=== PATIENT | female | born 1960 | race African-American/Black ===

== ENCOUNTER 2017-05-30 11:09 | Inpatient (IN) | payer MEDICARE, MEDICAID ==
[2017-05-30] VITALS (7 sets, daily range): BP systolic 123–149; BP diastolic 73–90
[~2017-05-30] VITALS: Ht 165.1 cm; Wt 54.4 kg
--- NOTE | 2017-05-30 11:13 | Emergency Room Report ---
History of Present Illness General Chief Complaint: Altered Level of Consciousness Present Illness HPI PMHx: hypothyroid, spinocerebellar disease, depression, insomna, anemia, stage 4 ulcers Non-verbal DNR WBC 17K as of 05/28 Hb 5.6/19 Allergies: Coded Allergies: No Known Allergies (Unverified , 05/30/17) Patient History Past Medical History: other - see hpi Past Surgical History: unable to obtain Pertinent Family History: unable to obtain Social History: Denies: smoking, alcohol use, drug use Now: No Immunizations: UTD Reviewed Nursing Documentation: PMH: Agreed, PSxH: Agreed Nursing Documentation-PMH Hx Cardiac Problems: Yes - cad Hx Hypertension: Yes Hx Diabetes: Yes History Of Psychiatric Problem: Yes - depression, hypothyroid Review of Systems All Other Systems: limited - AMS Physical Exam Vital Signs Date Time Temp Pulse Resp B/P (MAP) Pulse Ox O2 Delivery O2 Flow Rate FiO2 05/30/17 10:59 98 24 120/7 98 Simple Mask 10.0 Sp02 EP Interpretation: reviewed, normal General Appearance: normal inspection, well appearing, no apparent distress, alert, cachetic, other - Diaphoretic, grunting Head: normocephalic, atraumatic Eyes: bilateral eye PERRL, bilateral eye EOMI ENT: normal ENT inspection, hearing grossly normal Neck: normal inspection, thyroid normal, no meningismus Respiratory: normal inspection, lungs clear, normal breath sounds, no rhonchi, no respiratory distress, no retraction, no accessory muscle use, no wheezing Cardiovascular #1: normal peripheral pulses, regular rate, rhythm, no edema, no gallop, tachycardia Gastrointestinal: normal inspection, non tender, soft, no mass, other - Gtube in place. No infection at site Genitourinary: no CVA tenderness Musculoskeletal: normal inspection, back normal, normal range of motion, Kofi' s Sign negative, other - Sacral decubitus ulcer Neurologic: normal inspection, alert, responsive, speech normal Medical Decision Making Diagnostic Impression: Primary Impression: Altered level of consciousness Additional Impressions: Sepsis Qualified Codes: A41.9 - Sepsis, unspecified organism Tachycardia ER Course [facility] Low-grade fever, tachycardia. Normotensive ?if given daily metoprolol at [facility] - was given Lopressor here [place] 16K. Empiric Tx for sepsis given Unknown source. CXR doesnt show PNA. UA: No UTI Possible infected stage 4 ulcer? Initial tachycardia 160 improved to 120 after IVF, HI tylenol, Abx, metoprolol Endorsed for tele admit at 1230pm to Dr Barnett for panel admit. EKG Diagnostic Results Rate: tachycardiac Rhythm: NSR ST Segments: no acute changes ASA given to the pt in ED: No Rhythm Strip Diag. Results EP Interpretation: yes Rate: 148 Rhythm: NSR, no PVC's, no ectopy Chest X-Ray Diagnostic Results Chest X-Ray Diagnostic Results : Chest X-Ray Ordered: Yes # of Views/Limited/Complete: 1 View Indication: Other - AMS EP Interpretation: Yes Interpretation: no consolidation, no effusion, no pneumothorax, no acute cardiopulmonary disease Impression: No acute disease Interpreting ER Provider: Dr Ekta Monterroso MD Last Vital Signs Date Time Temp Pulse Resp B/P (MAP) Pulse Ox O2 Delivery O2 Flow Rate FiO2 05/30/17 10:59 98 24 120/7 98 Simple Mask 10.0 Status: improved Disposition: ADMITTED INPATIENT Condition: Serious EKTA MONTERROSO M.D. May 30, 2017 11:13
[2017-05-30] MEDS ORDERED: Metoprolol 5mg/5ml Inj IVP SCH (11:15)
[2017-05-30] MEDS ORDERED: MULTIVITAMINS1 EAC2 ORAL (11:33)
[2017-05-30] MEDS ORDERED: OMEPRAZOLE20 M2 GT (11:33)
[2017-05-30] MEDS ORDERED: NORCO 5-325 TA1 EACH (11:33)
[2017-05-30] MEDS ORDERED: DOCUSATE SODIU250 MG ORAL (11:33)
[2017-05-30] MEDS ORDERED: KLONOPIN0.5 MG GT (11:33)
[2017-05-30] MEDS ORDERED: LEXAPRO10 MG GT (11:33)
[2017-05-30] MEDS ORDERED: METOPROLOL TART25 MG GT (11:33)
[2017-05-30] MEDS ORDERED: LEVOTHYROXINE88 MCG GT (11:33)
[2017-05-30] MEDS ORDERED: ASCORBIC ACID500 MG ORAL (11:33)
[2017-05-30] MEDS ORDERED: MIRTAZAPINE15 MG ORAL (11:33)
[2017-05-30 11:34] LABS: APPEARANCE,URINE SLIGHTLY CLOUDY; KETONES,URINE NEGATIVE (NEGATIVE); LEUKOCYTE ESTERASE ,URINE 1+ (NEGATIVE); MEAN CORPUSCULAR HEMOGLOBIN 26.8 PG (27.0-31.0); MEAN CORPUSCULAR HGB CONC 31.2 G/DL (32.0-36.0); MEAN CORPUSCULAR VOLUME 86 FL (80-99); MEAN PLATELET VOLUME 5.7 FL (6.5-10.1); NITRITE,URINE NEGATIVE (NEGATIVE); PH,URINE 5 (4.5-8.0); PLATELET COUNT 831 K/UL (150-450); PROTEIN,URINE 2+ (NEGATIVE); RED BLOOD COUNT 3.83 M/UL (4.20-5.40); RED CELL DISTRIBUTION WIDTH 15.6 % (11.6-14.8); UROBILINOGEN,URINE NORMAL MG/DL (0.0-1.0); WHITE BLOOD COUNT 16.6 K/UL (4.8-10.8)
[2017-05-30] MEDS ORDERED: Cefepime HCl 2 GM in D5W 110 ML IVPB ONE (11:45)
[2017-05-30] MEDS ORDERED: Acetaminophen 650 MG SUPP RECTAL ONE (11:45)
[2017-05-30 11:46] LABS: INR 0.9 (0.9-1.1); PROTHROMBIN TIME 9.6 SEC (9.30-11.50)
[2017-05-30 11:50] LABS: BACTERIA,URINE FEW /HPF; RBC,URINE 0-2 /HPF (0 - 2); SQUAMOUS EPITHELIAL CELL,UR FEW /LPF (NONE/OCC)
[2017-05-30 11:51] LABS: URIC ACID CRYSTALS,URINE MODERATE /LPF; YEAST,URINE OCCASIONAL /HPF
[2017-05-30 11:57] LABS: TROPONIN I < 0.30 ng/mL (<=0.30)
[2017-05-30 11:58] LABS: ALANINE AMINOTRANSFERASE 23 U/L (3-33); ALBUMIN/GLOBULIN RATIO 0.5 (1.0-2.7); ANION GAP 14 (5-15); ASPARTATE AMINO TRANSFERASE 25 U/L (5-40); CALCIUM 8.8 mg/dL (8.6-10.2); CARBON DIOXIDE 27 mEQ/L (20-30); CHLORIDE 98 mEQ/L (98-107); CREATININE 0.4 mg/dL (0.5-0.9); GLOMERULAR FILTRATION RATE > 60 mL/min (>60); HEMOLYSIS 23; POTASSIUM 4.3 mEQ/L (3.4-4.9); SODIUM 139 mEQ/L (135-145); TOTAL PROTEIN 6.9 g/dL (6.6-8.7)
[2017-05-30] MEDS ORDERED: Cefepime 2gm ONE (11:59)
--- NOTE | 2017-05-30 12:00 | Diagnostic Imaging Report ---
Indication: Dyspnea Comparison: None A single view chest radiograph was obtained. Findings: Lungs are clear. Heart size is normal. There is a multi-endhole drainage catheter projected over the left upper quadrant of abdomen. There is an apparent fracture that is markedly displaced involving the left mid humerus. This is not well evaluated on the current study. Please correlate clinically. Impression: No acute cardiopulmonary disease. Apparent fracture of the left mid humerus. Please correlate clinically and obtain further imaging as warranted.
[2017-05-30 12:03] LABS: REFLEX LACTIC ACID YES OR NO YES
[2017-05-30 12:08] LABS: CKMB 3.8 ng/mL (< 3.8)
[2017-05-30 12:22] LABS: ANISOCYTOSIS 1+; BAND NEUTROPHILS % (MANUAL) 4 % (0-8); BASOPHILS % (MANUAL) 0 % (0-2); EOSINOPHILS % (MANUAL) 0 % (0-3); HYPOCHROMASIA 1+; LYMPHOCYTES % (MANUAL) 9 % (20-45); NEUTROPHILS % (MANUAL) 86 % (45-75); PLATELET ESTIMATE INCREASED; TOTAL CELLS COUNTED 100
[2017-05-30 12:32] LABS: PLATELET MORPHOLOGY NORMAL
[2017-05-30] MEDS ORDERED: Morphine Sulfate 4mg/ml Inj IVP PRN (14:30)
[2017-05-30] MEDS ORDERED: Milk of Magnesia 30ml Ud ORAL PRN (14:30)
--- NOTE | 2017-05-30 14:32 | History & Physical ---
History and Physical History & Physicial HP dictated # [id number] CHARLES JOSE May 30, 2017 14:32
[2017-05-30] MEDS ORDERED: Metoprolol 5mg/5ml Inj IVP STA (15:33)
[2017-05-30] MEDS ORDERED: Vancomycin 1250mg/D5W 250ml IVPB ONE (17:00)
[2017-05-30] MEDS: Aspirin EC 325mg tab ORAL SCH (18:14)
[2017-05-30] MEDS: Heparin 5000 units/ml inj SUBQ SCH ×2 (18:20→22:23)
[2017-05-30] MEDS ORDERED: Piperacillin/Tazobactam 3.375 GM in NS 110 ML IVPB SCH (20:00)
[2017-05-30] MEDS: Piperacillin/Tazobactam 3.375 GM in NS 110 ML IVPB SCH (23:06)
[2017-05-31] VITALS: BP 104/81
[2017-05-31] MEDS ORDERED: VANCOMYCIN1 GM/2502 IVPB (01:56)
[2017-05-31] MEDS ORDERED: ACETAMINOPHEN325 M1 GT (01:56)
[2017-05-31] MEDS ORDERED: SORBITOL 70%30 ML GT (01:56)
[2017-05-31] MEDS ORDERED: ZOSYN 3.373.375 GM/1 IVPB (01:56)
[2017-05-31] MEDS ORDERED: SENNA8.6 M2 GT (01:56)
[2017-05-31 04:00] VITALS: BP 131/82
[2017-05-31] MEDS ORDERED: Vancomycin 750mg/D5W 275ml IVPB SCH ×2 (05:00)
[2017-05-31] MEDS: Piperacillin/Tazobactam 3.375 GM in NS 110 ML IVPB SCH ×3 (06:10→21:42)
[2017-05-31 08:28] VITALS: BP 123/70
--- NOTE | 2017-05-31 08:45 | History and Physical Report ---
DATE OF ADMISSION: 05/30/2017 CHIEF COMPLAINT: The [facility] in [facility] for change of mental status. 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 She is nonverbal and is unable to provide any history. She was sent to the emergency room for change in mental status and was diagnosed with sepsis with high white count of 16,600. The patient is being admitted for treatment. PAST MEDICAL HISTORY: The patient has a history of stage IV sacral decubitus and multiple decubitus in the back, history of anemia, depression, and hypothyroidism. She is status post G-tube placement and tube feedings, reported history of diabetes and hypertension. MEDICATIONS: Reviewed in the EMR. SOCIAL HISTORY: Unobtainable. The patient lives in a prison as mentioned. ALLERGIES: No known drug allergies. REVIEW OF SYSTEMS: Unobtainable. PHYSICAL EXAMINATION: GENERAL: The patient is a 56-year-old female, in no acute distress. Eyes opened, nonverbal. VITAL SIGNS: Blood pressure is 149/88, pulse 147, temperature 100 degrees, and respirations 35. HEENT: Somewhat pale conjunctivae. Anicteric sclerae. NECK: Supple. LUNGS: Clear to auscultation. HEART: S1 and S2 without murmurs or rubs. ABDOMEN: Soft and nontender. The patient has a G-tube in upper abdomen. EXTREMITIES: No cyanosis or edema. The patient has contractures of lower extremities. LABORATORY FINDINGS: CBC shows a WBC of 16.6, hematocrit 32.8, hemoglobin is 10.2, and platelets . Chemistry panel shows serum sodium 139, potassium 4.3, chloride 98, CO2 27, BUN 24, creatinine 0.4, and blood sugar is 148. UA shows 2 to 4 WBCs per high-power field. ASSESSMENT: This is a 56-year-old female, who was admitted with change in mental status. She has been diagnosed with sepsis with high white count and also fevers. UA findings looks benign, although, the patient has a indwelling Chahal catheter, doubt urinary tract infection, very likely the patient has osteomyelitis as a result of sacral decubitus. The patient apparently was supposed to be on vancomycin before. PLAN: The patient will be on IV antibiotics, tube feeding, pain medication, and wound care will be done. I will ask plastic surgeon, Dr. Townsend to see the patient. Labs would be followed and adjustments will be made in the patient's regimen. Kody Aguirre M.D. DR: ANTONIO JOB#: [id number] CC:
[2017-05-31] MEDS: Aspirin EC 325mg tab ORAL SCH (08:55)
[2017-05-31] MEDS: Heparin 5000 units/ml inj SUBQ SCH ×2 (08:57→20:11)
[2017-05-31 12:13] VITALS: BP 106/64
--- NOTE | 2017-05-31 15:20 | General Progress Note ---
Assessment/Plan Problem List: (1) Sepsis ICD Codes: A41.9 - Sepsis, unspecified organism SNOMED: 64541041 Qualifiers: Qualified Codes: A41.9 - Sepsis, unspecified organism (2) Altered level of consciousness ICD Codes: R40.4 - Transient alteration of awareness SNOMED: 8335913 (3) Gram-neg septicemia ICD Codes: A41.50 - Gram-negative sepsis, unspecified SNOMED: 721683649 (4) Sacral decubitus ulcer, stage IV ICD Codes: L89.154 - Pressure ulcer of sacral region, stage 4 SNOMED: 319262246, 000095575 Assessment/Plan abxs wound care Discussed with RN and sister DNR, DNI Subjective Allergies: Coded Allergies: No Known Allergies (Unverified , 05/30/17) Subjective In NAD Objective Last 24 Hour Vital Signs Date Time Temp Pulse Resp B/P (MAP) Pulse Ox O2 Delivery O2 Flow Rate FiO2 05/31/17 12:13 99.0 114 20 106/64 100 Nasal Cannula 3.0 05/31/17 12:00 103 05/31/17 08:28 99.2 125 22 123/70 99 Nasal Cannula 3.0 05/31/17 08:00 122 05/31/17 04:00 129 05/31/17 04:00 99.4 129 20 131/82 100 Nasal Cannula 3.0 05/31/17 00:00 99.3 138 20 104/81 100 Nasal Cannula 3.0 05/31/17 00:00 131 05/30/17 20:00 98.0 140 18 126/74 100 Nasal Cannula 2.0 05/30/17 17:45 130 05/30/17 17:17 98.2 126 20 137/78 99 Room Air 05/30/17 16:47 118 27 134/74 100 Nasal Cannula 2.0 05/30/17 16:06 116 24 133/75 100 Nasal Cannula 2.0 05/30/17 15:39 132 127/72 Intake and Output 05/31/17 06/01/17 19:00 07:00 Intake Total 310 ml Balance 310 ml IV Total 200 ml Tube Feeding 60 ml Other 50 ml Height (Feet): 5 Height (Inches): 5.00 Weight (Pounds): 120 Cardiovascular: normal rate Respiratory/Chest: lungs clear Edema: no edema noted CHARLES Sims 27, 2017 15:20
[2017-05-31 16:34] VITALS: BP 110/73
[2017-05-31] MEDS: Vancomycin 750mg/NS 250ml IVPB SCH (17:14)
[2017-05-31 20:15] VITALS: BP 115/73
[2017-06-01] VITALS: BP 130/66
[2017-06-01] MEDS: clonazePAM 0.5mg tab GT PRN (00:47)
--- NOTE | 2017-06-01 04:00 | Consultation ---
DATE OF CONSULTATION: 05/31/2017 INFECTIOUS DISEASE CONSULTATION PRIMARY ATTENDING PHYSICIAN: Kody Aguirre M.D. REASON FOR CONSULT: Gram-negative sepsis, infected pressure ulcer. HISTORY OF PRESENT ILLNESS: The patient is a 56-year-old female, admitted yesterday from a alf facility because of altered mental status. The patient was nonverbal on her baseline. She had leukocytosis at the time of admission with low-grade fever of 100 and tachycardia of 147. She has extensive pressure ulcer in the back and right hip. PAST MEDICAL HISTORY: Significant for spinocerebellar disease, diabetes mellitus, hypertension, hypothyroidism, anemia, and status post G-tube feeding. ALLERGIES: No known drug allergy. MEDICATIONS: Vancomycin, Zosyn, ranitidine, aspirin, sodium chloride, heparin, Tylenol, morphine, and Ambien. SOCIAL HISTORY: [facility] resident. Code status is DNR. No other history is obtainable. PHYSICAL EXAMINATION: VITAL SIGNS: Temperature 99, pulse 114, and blood pressure is 106/64. GENERAL APPEARANCE: Awake and noncommunicative. opens eyes, does not have any other movement. HEAD AND NECK: [place] conjunctiva. HEART: Tachycardic. LUNGS: Clear. ABDOMEN: Soft. G-tube. EXTREMITIES: She has no edema. Has severe muscle atrophy. GENITOURINARY: She has Chahal catheter. SKIN: She has a stage IV pressure ulcer in the sacrum and right hip area. Wound in the right hip has a very purulent discharge and the bone is also exposed. Both wounds have necrotic tissue and undermining. LABORATORY AND DIAGNOSTIC DATA: WBC 16.6, hemoglobin 10.2, hematocrit 32.8, and platelets 831,000. Sodium 139, potassium 4.2, chloride 98, bicarbonate 27, BUN 24, creatinine 0.4, and glucose 148. Her first lactate level was 2.5 that came to 1.8. Blood cultures grew Gram-negative rods. Urine culture so far negative. Wound culture is pending. Chest x-ray, negative. IMPRESSION: Gram-negative sepsis. The source of infection seems to be infected pressure ulcer and osteomyelitis. The patient has diabetes mellitus, hypertension, hypothyroidism, anemia, and status post chronic tube placement. RECOMMENDATION: We will continue with Zosyn and vancomycin, most likely needs debridement. We will follow up the culture, growth now seems to be poor. At the end of my exam, I thank, Dr. Aguirre, for involving me in the care of this patient. Elroy Aguirre M.D. DR: ANSHU JOB#: [id number] CC: MELISSA
[2017-06-01 04:19] VITALS: BP 132/74
[2017-06-01] MEDS: Vancomycin 750mg/NS 250ml IVPB SCH ×2 (04:44→17:43)
[2017-06-01] MEDS: Piperacillin/Tazobactam 3.375 GM in NS 110 ML IVPB SCH ×3 (05:12→21:09)
[2017-06-01 08:04] VITALS: BP 104/61
--- NOTE | 2017-06-01 08:30 | Infectious Diseases Prog Note ---
Assessment/Plan Assessment/Plan A: Gram negative sepsis Infected pressure ulcer & osteomyelitis of sacrum & hip Left humerus fracture Anemia P; Continue Zosyn & Vancomycin will f/u cultures Subjective ROS Limited/Unobtainable: Yes Allergies: Coded Allergies: No Known Allergies (Unverified , 05/30/17) Objective Vital Signs Last 24 Hour Vital Signs Date Time Temp Pulse Resp B/P (MAP) Pulse Ox O2 Delivery O2 Flow Rate FiO2 06/01/17 08:04 98.0 81 20 104/61 100 Nasal Cannula 5.0 06/01/17 04:19 97.3 93 20 132/74 100 Nasal Cannula 5.0 06/01/17 04:00 84 06/01/17 00:48 99.0 06/01/17 00:00 125 06/01/17 00:00 99.0 127 23 130/66 100 Nasal Cannula 3.0 05/31/17 20:15 98.4 108 19 115/73 100 Nasal Cannula 3.0 05/31/17 20:00 103 05/31/17 16:34 98.6 110 20 110/73 99 Nasal Cannula 3.0 05/31/17 16:00 102 05/31/17 12:13 99.0 114 20 106/64 100 Nasal Cannula 3.0 05/31/17 12:00 103 05/31/17 08:28 99.2 125 22 123/70 99 Nasal Cannula 3.0 Height (Feet): 5 Height (Inches): 5.00 Weight (Pounds): 120 General Appearance: no acute distress HEENT: other - O2 by cannula Respiratory/Chest: lungs clear Cardiovascular: normal rate Abdomen: soft, non tender, other - GT feeding Extremities: no edema, other - deformity of left arm Skin: ulcers Neurologic/Psychiatric: aphasia, other - opens eyes only Microbiology Date/Time Source Procedure Growth Status 05/30/17 11:30 Blood Blood Culture - Preliminary Gram Negative Bacillus 1 Resulted 05/30/17 11:15 Blood Blood Culture - Preliminary Gram Negative Bacillus 1 Resulted 05/30/17 15:12 Nasal Nares MRSA Culture - Final NO METHICILLIN RESISTANT STAPH AUREUS... Complete 05/30/17 11:15 Urine,Clean Catch Urine Culture - Preliminary NO GROWTH AFTER 24 HOURS Resulted 05/30/17 21:00 Sacral Swab Gram Stain - Final Resulted 05/30/17 21:00 Sacral Swab Wound Culture Pending Resulted Current Medications Medications (Trade) Dose Ordered Sig/Danielle Route PRN Reason Start Time Stop Time Status Last Admin Dose Admin Acetaminophen (Tylenol) 650 mg Q4H PRN ORAL Mild Pain (Pain Scale 1-3) 05/30/17 14:30 06/29/17 14:29 05/31/17 23:49 Aspirin (Ecotrin) 325 mg DAILY ORAL 05/30/17 16:15 06/29/17 16:14 05/31/17 08:55 Clonazepam (KlonoPIN) 0.5 mg Q6H PRN GT For Anxiety/shaking 06/01/17 00:45 06/08/17 00:44 06/01/17 00:47 Dextrose (Dextrose 50%) STAT PRN IV Hypoglycemia 05/30/17 14:30 06/29/17 14:29 Escitalopram Oxalate (Lexapro) 10 mg DAILY GT 06/01/17 09:00 07/01/17 08:59 Heparin Sodium (Porcine) (Heparin 5000 units/ml) 5,000 units EVERY 12 HOURS SUBQ 05/30/17 16:00 06/29/17 15:59 05/31/17 20:11 Levothyroxine Sodium (Synthroid) 88 mcg DAILY@0630 GT 06/01/17 06:30 07/01/17 06:29 06/01/17 06:02 Magnesium Hydroxide (Mom) 30 ml HSPRN PRN ORAL Constipation 05/30/17 14:30 06/29/17 14:29 Morphine Sulfate (Morphine Sulfate) 4 mg EVERY 3 HOURS PRN IVP Severe Pain (Pain Scale 7-10) 05/30/17 14:30 06/06/17 14:29 Piperacillin Sod/ Tazobactam Sod 3.375 gm/Sodium Chloride 110 ml @ 220 mls/hr Q8HR IVPB 05/30/17 22:15 06/06/17 22:14 06/01/17 05:12 Ranitidine HCl (Zantac) 150 mg TWICE A DAY ORAL 05/30/17 18:00 06/29/17 17:59 05/31/17 18:06 Sodium Chloride 1,000 ml @ 50 mls/hr Q20H IV 05/30/17 16:00 06/29/17 15:59 05/31/17 21:47 Vancomycin HCl (Vanco rx to dose) 1 ea DAILY PRN MISC Per rx protocol 05/30/17 14:30 06/29/17 14:29 Vancomycin/Sodium Chloride 250 ml @ 166.667 mls/hr Q12HR@0500,1700 IVPB 05/31/17 17:00 06/05/17 16:59 06/01/17 04:44 Zolpidem Tartrate (Ambien) 5 mg DAILYPRN PRN ORAL Insomnia 05/30/17 14:30 06/06/17 14:29 CALEB JOSE Jun 01, 2017 08:30
[2017-06-01] MEDS: Aspirin EC 325mg tab ORAL SCH (08:47)
[2017-06-01] MEDS: Heparin 5000 units/ml inj SUBQ SCH ×2 (08:53→20:19)
--- NOTE | 2017-06-01 09:51 | General Progress Note ---
Assessment/Plan Problem List: (1) Sepsis ICD Codes: A41.9 - Sepsis, unspecified organism SNOMED: 19743224 Qualifiers: Qualified Codes: A41.9 - Sepsis, unspecified organism (2) Altered level of consciousness ICD Codes: R40.4 - Transient alteration of awareness SNOMED: 0449006 (3) Gram-neg septicemia ICD Codes: A41.50 - Gram-negative sepsis, unspecified SNOMED: 204638292 (4) Sacral decubitus ulcer, stage IV ICD Codes: L89.154 - Pressure ulcer of sacral region, stage 4 SNOMED: 272139191, 581675787 Assessment/Plan abxs wound care follow labs DNR, DNI Subjective Allergies: Coded Allergies: No Known Allergies (Unverified , 05/30/17) Subjective In NAD Objective Last 24 Hour Vital Signs Date Time Temp Pulse Resp B/P (MAP) Pulse Ox O2 Delivery O2 Flow Rate FiO2 06/01/17 08:04 98.0 81 20 104/61 100 Nasal Cannula 5.0 06/01/17 04:19 97.3 93 20 132/74 100 Nasal Cannula 5.0 06/01/17 04:00 84 06/01/17 00:48 99.0 06/01/17 00:00 125 06/01/17 00:00 99.0 127 23 130/66 100 Nasal Cannula 3.0 05/31/17 20:15 98.4 108 19 115/73 100 Nasal Cannula 3.0 05/31/17 20:00 103 05/31/17 16:34 98.6 110 20 110/73 99 Nasal Cannula 3.0 05/31/17 16:00 102 05/31/17 12:13 99.0 114 20 106/64 100 Nasal Cannula 3.0 05/31/17 12:00 103 Height (Feet): 5 Height (Inches): 5.00 Weight (Pounds): 120 Cardiovascular: normal rate Respiratory/Chest: lungs clear Abdomen: soft CHARLES JOSE Jun 01, 2017 09:51
[2017-06-01 12:06] VITALS: BP 103/52
--- NOTE | 2017-06-01 16:15 | Wound Care Consultation ---
Wound Assessment Wound Assessment #1: Wound Number: 1 Wound Present on Admission: Yes New Wound: No Status Change of Wound: No Wound Location Body Site Modif: left, upper, posterior Wound Location Body Site: back Wound Type: pressure ulcer Chava Test: Does not Chava Pressure Ulcer Stage: IV/unstageable Wound Thickness: Full Thickness Wound Length: 2.0 Wound Width: 2.0 Wound Depth: utd Percent of Wound Bed Yellow/Wh: 100 Other Colors Identified: surrounding tissue noted with full thickness scar tissue Wound Drainage Description: Serosanguineous Wound Drainage Amount: Moderate Wound Drainage Odor: None/Absent Tissue Surrounding Wound: Erythemic Wound General Appearance: Reddened, Draining, Necrotic Wound Assessment #2: Wound Number: 2 Wound Present on Admission: Yes New Wound: No Status Change of Wound: No Wound Location Body Site Modif: left, upper, posterior Wound Location Body Site: back Wound Type: scar Chava Test: Does not Chava Wound Thickness: Full Thickness Wound Length: 3.0 Wound Width: 2.0 Percent of Wound Cable/Red: 100 Wound Drainage Amount: None Wound Drainage Odor: None/Absent Tissue Surrounding Wound: Intact Wound General Appearance: Clean/Dry Wound Assessment #3: Wound Present on Admission: Yes New Wound: No Status Change of Wound: No Wound Location Body Site Modif: right, upper, posterior Wound Location Body Site: back Wound Type: pressure ulcer Chava Test: Does not Chava Pressure Ulcer Stage: deep tissue injury Wound Thickness: Full Thickness Wound Length: 3.0 Wound Width: 3.0 Wound Depth: utd Percent of Wound Purple/Maroon: 100 Wound Drainage Amount: None Wound Drainage Odor: None/Absent Tissue Surrounding Wound: Erythemic Wound General Appearance: Reddened - maroon. Wound Assessment #4: Wound Number: 4 Wound Present on Admission: Yes New Wound: No Status Change of Wound: No Wound Location Body Site Modif: right, upper, posterior Wound Location Body Site: back - site #2 Wound Type: pressure ulcer Chava Test: Does not Chava Pressure Ulcer Stage: IV/unstageable Wound Thickness: Full Thickness Wound Length: 4.0 Wound Width: 3.0 Wound Depth: utd Percent of Wound Bed Yellow/Wh: 80 Percent of Wound Black/Brown: 20 Wound Drainage Amount: Moderate Wound Drainage Odor: None/Absent Tissue Surrounding Wound: Erythemic Wound General Appearance: Reddened, Draining, Necrotic Wound Assessment #5: Wound Number: 5 Wound Present on Admission: Yes New Wound: No Status Change of Wound: No Wound Location Body Site: other - sacrococcygeal Wound Type: pressure ulcer Chava Test: Does not Chava Pressure Ulcer Stage: IV/unstageable Wound Thickness: Full Thickness Wound Length: 14.0 Wound Width: 20.0 Wound Depth: 4.0 Percent of Wound Cable/Red: 70 Percent of Wound Bed Yellow/Wh: 30 Wound Drainage Description: Serosanguineous Wound Drainage Amount: Copious Wound Drainage Odor: Mild Odor Tissue Surrounding Wound: Macerated Wound Undermining at 12:00: 3.0 Wound Undermining at 3:00: 3.0 Wound Undermining at 9:00: 5.0 Wound General Appearance: Reddened, Draining, Necrotic, Bone Palpable, Muscle Visible Wound Assessment #6: Wound Number: 6 Wound Present on Admission: Yes New Wound: No Status Change of Wound: No Wound Location Body Site Modif: right Wound Location Body Site: ischial tuberosity Wound Type: pressure ulcer Chava Test: Does not Chava Pressure Ulcer Stage: IV/unstageable Wound Thickness: Full Thickness Wound Length: 14.0 Wound Width: 14.0 Wound Depth: utd Percent of Wound Cable/Red: 70 Percent of Wound Bed Yellow/Wh: 30 Wound Drainage Description: Serosanguineous Wound Drainage Amount: Copious Wound Drainage Odor: Mild Odor Tissue Surrounding Wound: Macerated Wound Undermining at 12:00: 5.0 Wound General Appearance: Reddened, Draining, Necrotic, Bone Palpable, Muscle Visible, Bone Visible Wound Assessment #7: Wound Number: 7 Wound Present on Admission: Yes New Wound: No Status Change of Wound: No Wound Location Body Site Modif: left Wound Location Body Site: ischial tuberosity Wound Type: pressure ulcer Pressure Ulcer Stage: IV/unstageable Wound Thickness: Full Thickness Wound Length: 3.0 Wound Width: 2.0 Wound Depth: utd Percent of Wound Black/Brown: 100 Wound Drainage Description: Serosanguineous Wound Drainage Amount: Moderate Wound Drainage Odor: None/Absent Tissue Surrounding Wound: Macerated Wound General Appearance: Reddened, Draining Wound Assessment #8: Wound Number: 8 Wound Present on Admission: Yes New Wound: No Status Change of Wound: No Wound Location Body Site Modif: left Wound Location Body Site: trochanter Wound Type: pressure ulcer Chava Test: Does not Chava Pressure Ulcer Stage: IV/unstageable Wound Thickness: Full Thickness Wound Length: 5.5 Wound Width: 5.5 Wound Depth: utd Percent of Wound Bed Yellow/Wh: 50 Percent of Wound Purple/Maroon: 50 Wound Drainage Description: Serosanguineous Wound Drainage Amount: Moderate Wound Drainage Odor: None/Absent Tissue Surrounding Wound: Erythemic Wound General Appearance: Reddened, Draining, Necrotic Wound Comment 1. left upper posterior back pressure ulcer stage IV/Unstageable. 2. left upper posterior back full thickness scar tissue. 3. right upper posterior back deep tissue injury. 4. right upper posterior back site #2 pressure ulcer stage IV/Unstageable. 5. sacrococcygeal pressure ulcer stage IV. 6. right ischial tuberosity pressure ulcer stage IV. 7. left ischial tuberosity pressure ulcer unstageable. 8. left trochanter pressure ulcer stage IV/unstageable. recommendation. -follow up with attending MD for possible consult with joey royal or consult with md for possible debridement. -apply low air loss p200 mattress for wound and skin management. -Keep clean and dry. -Optimize nutrition. -Turn and reposition. -local wound care as ordered per protocol. -Heel protectors. -offload affected wound sites. -offload heels and feet. -avoid shear and friction. -Assess and notify MD for any changes of condition noted to skin. ERROL PACHECO Jun 01, 2017 16:15
[2017-06-01 17:30] VITALS: BP 105/57
--- NOTE | 2017-06-01 18:03 | Consultation ---
History of Present Illness General Date patient seen: Jun 01, 2017 Time patient seen: 17:57 Chief Complaint: Altered Level of Consciousness Referring physician: Dr. Barnett Reason for Consultation: Pressure ulcers of the trunk Present Illness HPI Asked to evaluate this 56 yof with multiple pressure ulcers. Patient was admitted to [facility] from a SNF 2 days ago. 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 It is unclear what the treatment has been. She is being seen by ID as well. She has a feeding tube and is nonverbal. Allergies: Coded Allergies: No Known Allergies (Unverified , 05/30/17) Medication History Scheduled Ascorbic Acid* (Ascorbic Acid*), 500 MG ORAL DAILY, (Reported) Clonazepam* (Klonopin*), 0.5 MG GT Q6H, (Reported) Docusate Sodium* (Docusate Sodium*), 250 MG ORAL TWICE A DAY, (Reported) Escitalopram Oxalate* (Lexapro*), 10 MG GT DAILY, (Reported) Levothyroxine Sodium* (Levothyroxine Sodium*), 88 MCG GT DAILY, (Reported) Metoprolol Tartrate* (Metoprolol Tartrate*), 25 MG GT EVERY 8 HOURS, (Reported) Mirtazapine* (Remeron*), 15 MG ORAL BEDTIME, (Reported) Multivitamins* (Multivitamins*), 1 TAB ORAL DAILY, (Reported) Omeprazole (Omeprazole), 20 MG GT TWICE A DAY, (Reported) Gbjjxstombgu-Rstz-Polzcgdw,Iso (Zosyn 3.375 Gm Pre Mix-Bag), 3.375 GM IVPB EVERY 8 HOURS, (Reported) Sennosides (Senna), 2 TAB GT HS, (Reported) Vancomycin Hcl/D5w (Vancomycin-D5w 1 G/250 Ml), 750 GM IVPB Q12HR, (Reported) Scheduled PRN Acetaminophen* (Acetaminophen 325MG Tablet*), 650 MG GT Q4H PRN for Fever/ Headache/Mild Pain, (Reported) Hydrocodone Bit/Acetaminophen 5-325* (Stevenson 5-325*), 1 TAB Q4H PRN for For Pain, (Reported) Sorbitol (Sorbitol), 30 ML GT Q6HR PRN for Constipation, (Reported) Patient History Limited by: medical condition History Provided By: Medical Record Healthcare decision maker Gabriela Narvaez Resuscitation status Do Not Resuscitate Advanced Directive on File Physical Exam Lines, tubes and drains: peripheral, gtube, daniel cath Respiratory/Chest: no respiratory distress Abdomen: soft Extremities: other - Flexion contracture b/l LE Skin Exam: other - Large rightischial pressure ulcer with slough and loose eschar present. Undermines superiorly but does not connect with the sacral ulcer. Sacral ulcer is large stage 4 with bone exposed. Some fibrotioc debris at the base. Periskin with no erythema or warmth. Musculoskeletal: atrophy Last 24 Hour Vital Signs Date Time Temp Pulse Resp B/P (MAP) Pulse Ox O2 Delivery O2 Flow Rate FiO2 06/01/17 15:47 99 06/01/17 12:06 97.7 95 20 103/52 100 Nasal Cannula 5.0 06/01/17 12:00 93 06/01/17 08:04 84 06/01/17 08:04 98.0 81 20 104/61 100 Nasal Cannula 5.0 06/01/17 04:19 97.3 93 20 132/74 100 Nasal Cannula 5.0 06/01/17 04:00 84 06/01/17 00:48 99.0 06/01/17 00:00 125 06/01/17 00:00 99.0 127 23 130/66 100 Nasal Cannula 3.0 05/31/17 20:15 98.4 108 19 115/73 100 Nasal Cannula 3.0 05/31/17 20:00 103 Intake and Output 06/01/17 06/02/17 19:00 07:00 Intake Total 970 ml Balance 970 ml Free Water 100 ml IV Total 610 ml Tube Feeding 260 ml # Bowel Movements 2 Height (Feet): 5 Height (Inches): 5.00 Weight (Pounds): 120 Medications Current Medications Medications (Trade) Dose Ordered Sig/Danielle Route PRN Reason Start Time Stop Time Status Last Admin Dose Admin Acetaminophen (Tylenol) 650 mg Q4H PRN ORAL Mild Pain (Pain Scale 1-3) 05/30/17 14:30 06/29/17 14:29 05/31/17 23:49 Aspirin (Ecotrin) 325 mg DAILY ORAL 05/30/17 16:15 06/29/17 16:14 06/01/17 08:47 Clonazepam (KlonoPIN) 0.5 mg Q6H PRN GT For Anxiety/shaking 06/01/17 00:45 06/08/17 00:44 06/01/17 00:47 Dextrose (Dextrose 50%) STAT PRN IV Hypoglycemia 05/30/17 14:30 06/29/17 14:29 Escitalopram Oxalate (Lexapro) 10 mg DAILY GT 06/01/17 09:00 07/01/17 08:59 06/01/17 08:47 Heparin Sodium (Porcine) (Heparin 5000 units/ml) 5,000 units EVERY 12 HOURS SUBQ 05/30/17 16:00 06/29/17 15:59 06/01/17 08:53 Levothyroxine Sodium (Synthroid) 88 mcg DAILY@0630 GT 06/01/17 06:30 07/01/17 06:29 06/01/17 06:02 Magnesium Hydroxide (Mom) 30 ml HSPRN PRN ORAL Constipation 05/30/17 14:30 06/29/17 14:29 Morphine Sulfate (Morphine Sulfate) 4 mg EVERY 3 HOURS PRN IVP Severe Pain (Pain Scale 7-10) 05/30/17 14:30 06/06/17 14:29 Piperacillin Sod/ Tazobactam Sod 3.375 gm/Sodium Chloride 110 ml @ 220 mls/hr Q8HR IVPB 05/30/17 22:15 06/06/17 22:14 06/01/17 14:33 Ranitidine HCl (Zantac) 150 mg TWICE A DAY ORAL 05/30/17 18:00 06/29/17 17:59 06/01/17 17:43 Sodium Chloride 1,000 ml @ 50 mls/hr Q20H IV 05/30/17 16:00 06/29/17 15:59 05/31/17 21:47 Vancomycin HCl (Vanco rx to dose) 1 ea DAILY PRN MISC Per rx protocol 05/30/17 14:30 06/29/17 14:29 Vancomycin/Sodium Chloride 250 ml @ 166.667 mls/hr Q12HR@0500,1700 IVPB 05/31/17 17:00 06/05/17 16:59 06/01/17 17:43 Zolpidem Tartrate (Ambien) 5 mg DAILYPRN PRN ORAL Insomnia 05/30/17 14:30 06/06/17 14:29 Assessment/Plan Status: stable Assessment/Plan Patient with large stage 4 pressure ulcers of the sacrum and right ischium. Prognosis for healing is poor. She also has low albumin but should check prealbumin level. Needs bedside debridement of the right ischium and sacral ulcers and would also recommend bone biopsy of the sacrum to guide antibiotic management. Will obtain consent can perform at the bedside once consent is obtained. LONNIE MARK Jun 01, 2017 18:03
--- NOTE | 2017-06-01 19:45 | Cardiology Report ---
APPROVED REPORT EKG Measurement Heart [id number] CT 128P90 [id number] Sinus tachycardia Septal infarct, age undetermined Abnormal ECG
[2017-06-01 20:00] VITALS: BP 105/65
[2017-06-02] VITALS: BP 94/58
[2017-06-02 04:00] VITALS: BP 115/70
[2017-06-02] MEDS: Piperacillin/Tazobactam 3.375 GM in NS 110 ML IVPB SCH ×3 (05:11→21:17)
[2017-06-02 05:56] LABS: MEAN CORPUSCULAR HEMOGLOBIN 26.9 PG (27.0-31.0); MEAN CORPUSCULAR HGB CONC 31.3 G/DL (32.0-36.0); MEAN CORPUSCULAR VOLUME 86 FL (80-99); MEAN PLATELET VOLUME 5.5 FL (6.5-10.1); PLATELET COUNT 742 K/UL (150-450); RED BLOOD COUNT 2.86 M/UL (4.20-5.40); RED CELL DISTRIBUTION WIDTH 16.7 % (11.6-14.8); WHITE BLOOD COUNT 8.8 K/UL (4.8-10.8)
[2017-06-02 06:15] LABS: ANION GAP 12 (5-15); CALCIUM 8.6 mg/dL (8.6-10.2); CARBON DIOXIDE 27 mEQ/L (20-30); CHLORIDE 102 mEQ/L (98-107); CREATININE 0.3 mg/dL (0.5-0.9); GLOMERULAR FILTRATION RATE > 60 mL/min (>60); HEMOLYSIS 0; POTASSIUM 3.3 mEQ/L (3.4-4.9); SODIUM 141 mEQ/L (135-145)
[2017-06-02 07:46] LABS: BAND NEUTROPHILS % (MANUAL) 5 % (0-8); BASOPHILS % (MANUAL) 0 % (0-2); EOSINOPHILS % (MANUAL) 0 % (0-3); LYMPHOCYTES % (MANUAL) 15 % (20-45); NEUTROPHILS % (MANUAL) 78 % (45-75); PLATELET ESTIMATE INCREASED; TOTAL CELLS COUNTED 100
[2017-06-02 07:47] LABS: ANISOCYTOSIS 1+; HYPOCHROMASIA 1+; PLATELET MORPHOLOGY NORMAL
[2017-06-02 08:00] VITALS: BP 115/68
[2017-06-02] MEDS: Aspirin EC 325mg tab ORAL SCH (08:35)
[2017-06-02] MEDS: Heparin 5000 units/ml inj SUBQ SCH ×2 (08:36→20:16)
[2017-06-02] MEDS: Vancomycin 1250mg/D5W 250ml IVPB SCH (08:36)
--- NOTE | 2017-06-02 11:39 | Infectious Diseases Prog Note ---
Assessment/Plan Assessment/Plan A: E. 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 Left humerus fracture Anemia VRE colonization P; Continue Zosyn & Vancomycin, add PO Bactrim will f/u cultures Agree with bone biopsy culture Subjective ROS Limited/Unobtainable: Yes Constitutional: Reports: other - doing better Respiratory: Reports: no symptoms Allergies: Coded Allergies: No Known Allergies (Unverified , 05/30/17) Objective Vital Signs Last 24 Hour Vital Signs Date Time Temp Pulse Resp B/P (MAP) Pulse Ox O2 Delivery O2 Flow Rate FiO2 06/02/17 08:00 98 06/02/17 08:00 97.3 96 16 115/68 100 Nasal Cannula 4.0 06/02/17 04:00 98.1 85 18 115/70 100 Nasal Cannula 5.0 06/02/17 04:00 91 06/02/17 00:00 97.7 88 18 94/58 100 Nasal Cannula 5.0 06/02/17 00:00 89 06/01/17 20:00 97.8 101 20 105/65 100 Nasal Cannula 5.0 06/01/17 20:00 105 06/01/17 17:30 97.5 95 18 105/57 100 Nasal Cannula 5.0 06/01/17 15:47 99 06/01/17 12:06 97.7 95 20 103/52 100 Nasal Cannula 5.0 06/01/17 12:00 93 Height (Feet): 5 Height (Inches): 5.00 Weight (Pounds): 120 General Appearance: no acute distress HEENT: mucous membranes moist Respiratory/Chest: lungs clear Cardiovascular: normal rate Abdomen: soft, non tender Extremities: no edema Skin: ulcers Neurologic/Psychiatric: other - awake, obeys simple commands Microbiology Date/Time Source Procedure Growth Status 05/30/17 15:12 Nasal Nares MRSA Culture - Final NO METHICILLIN RESISTANT STAPH AUREUS... Complete 05/30/17 21:00 Sacral Swab Gram Stain - Final Resulted 05/30/17 21:00 Wound Culture - Preliminary A.baumanii Complx - Mdr Resulted 05/30/17 15:12 Rectum VRE Culture - Final Enterococcus Faecalis - Vre Complete Laboratory Tests Test 06/02/17 03:45 White Blood Count 8.8 K/UL (4.8-10.8) Red Blood Count 2.86 M/UL (4.20-5.40) L Hemoglobin 7.7 G/DL (12.0-16.0) L Hematocrit 24.6 % (37.0-47.0) L Mean Corpuscular Volume 86 FL (80-99) Mean Corpuscular Hemoglobin 26.9 PG (27.0-31.0) L Mean Corpuscular Hemoglobin Concent 31.3 G/DL (32.0-36.0) L Red Cell Distribution Width 16.7 % (11.6-14.8) H Platelet Count 742 K/UL (150-450) H Mean Platelet Volume 5.5 FL (6.5-10.1) L Neutrophils (%) (Auto) % (45.0-75.0) Lymphocytes (%) (Auto) % (20.0-45.0) Monocytes (%) (Auto) % (1.0-10.0) Eosinophils (%) (Auto) % (0.0-3.0) Basophils (%) (Auto) % (0.0-2.0) Differential Total Cells Counted 100 Neutrophils % (Manual) 78 % (45-75) H Lymphocytes % (Manual) 15 % (20-45) L Monocytes % (Manual) 2 % (1-10) Eosinophils % (Manual) 0 % (0-3) Basophils % (Manual) 0 % (0-2) Band Neutrophils 5 % (0-8) Platelet Estimate Increased H Platelet Morphology Normal Hypochromasia 1+ Anisocytosis 1+ Sodium Level 141 mEQ/L (135-145) Potassium Level 3.3 mEQ/L (3.4-4.9) L Chloride Level 102 mEQ/L (98-107) Carbon Dioxide Level 27 mEQ/L (20-30) Anion Gap 12 (5-15) Blood Urea Nitrogen 11 mg/dL (7-23) Creatinine 0.3 mg/dL (0.5-0.9) L Estimat Glomerular Filtration Rate > 60 mL/min (>60) Glucose Level 80 mg/dL (74-106) Calcium Level 8.6 mg/dL (8.6-10.2) Vancomycin Level Trough 24.4 ug/mL (5.0-12.0) H Current Medications Medications (Trade) Dose Ordered Sig/Danielle Route PRN Reason Start Time Stop Time Status Last Admin Dose Admin Acetaminophen (Tylenol) 650 mg Q4H PRN ORAL Mild Pain (Pain Scale 1-3) 05/30/17 14:30 06/29/17 14:29 05/31/17 23:49 Aspirin (Ecotrin) 325 mg DAILY ORAL 05/30/17 16:15 06/29/17 16:14 06/02/17 08:35 Clonazepam (KlonoPIN) 0.5 mg Q6H PRN GT For Anxiety/shaking 06/01/17 00:45 06/08/17 00:44 06/01/17 00:47 Dextrose (Dextrose 50%) STAT PRN IV Hypoglycemia 05/30/17 14:30 06/29/17 14:29 Escitalopram Oxalate (Lexapro) 10 mg DAILY GT 06/01/17 09:00 07/01/17 08:59 06/02/17 08:35 Heparin Sodium (Porcine) (Heparin 5000 units/ml) 5,000 units EVERY 12 HOURS SUBQ 05/30/17 16:00 06/29/17 15:59 06/02/17 08:36 Levothyroxine Sodium (Synthroid) 88 mcg DAILY@0630 GT 06/01/17 06:30 07/01/17 06:29 06/02/17 06:03 Magnesium Hydroxide (Mom) 30 ml HSPRN PRN ORAL Constipation 05/30/17 14:30 06/29/17 14:29 Morphine Sulfate (Morphine Sulfate) 4 mg EVERY 3 HOURS PRN IVP Severe Pain (Pain Scale 7-10) 05/30/17 14:30 06/06/17 14:29 Piperacillin Sod/ Tazobactam Sod 3.375 gm/Sodium Chloride 110 ml @ 220 mls/hr Q8HR IVPB 05/30/17 22:15 06/06/17 22:14 06/02/17 05:11 Ranitidine HCl (Zantac) 150 mg TWICE A DAY ORAL 05/30/17 18:00 06/29/17 17:59 06/02/17 08:35 Sodium Chloride 1,000 ml @ 50 mls/hr Q20H IV 05/30/17 16:00 06/29/17 15:59 06/01/17 21:13 Vancomycin HCl (Vanco rx to dose) 1 ea DAILY PRN MISC Per rx protocol 05/30/17 14:30 06/29/17 14:29 Vancomycin HCl/ Dextrose 250 ml @ 166.667 mls/hr Q24H IVPB 06/02/17 09:00 06/07/17 08:59 06/02/17 08:36 Zolpidem Tartrate (Ambien) 5 mg DAILYPRN PRN ORAL Insomnia 05/30/17 14:30 06/06/17 14:29 CALEB JOSE Jun 02, 2017 11:39
[2017-06-02 12:00] VITALS: BP 109/65
--- NOTE | 2017-06-02 12:50 | General Progress Note ---
Assessment/Plan Problem List: (1) Sepsis ICD Codes: A41.9 - Sepsis, unspecified organism SNOMED: 30988908 Qualifiers: Qualified Codes: A41.9 - Sepsis, unspecified organism (2) Altered level of consciousness ICD Codes: R40.4 - Transient alteration of awareness SNOMED: 5470275 (3) Gram-neg septicemia ICD Codes: A41.50 - Gram-negative sepsis, unspecified SNOMED: 516611881 (4) Sacral decubitus ulcer, stage IV ICD Codes: L89.154 - Pressure ulcer of sacral region, stage 4 SNOMED: 833325480, 595436125 Assessment/Plan abxs wound care follow labs DNR, DNI Discussed with ID Subjective Allergies: Coded Allergies: No Known Allergies (Unverified , 05/30/17) Subjective In NAD Objective Last 24 Hour Vital Signs Date Time Temp Pulse Resp B/P (MAP) Pulse Ox O2 Delivery O2 Flow Rate FiO2 06/02/17 12:15 95 06/02/17 12:00 97.5 91 18 109/65 100 Nasal Cannula 3.0 06/02/17 08:00 98 06/02/17 08:00 97.3 96 16 115/68 100 Nasal Cannula 4.0 06/02/17 04:00 98.1 85 18 115/70 100 Nasal Cannula 5.0 06/02/17 04:00 91 06/02/17 00:00 97.7 88 18 94/58 100 Nasal Cannula 5.0 06/02/17 00:00 89 06/01/17 20:00 97.8 101 20 105/65 100 Nasal Cannula 5.0 06/01/17 20:00 105 06/01/17 17:30 97.5 95 18 105/57 100 Nasal Cannula 5.0 06/01/17 15:47 99 Intake and Output 06/02/17 06/03/17 19:00 07:00 Intake Total 130 ml Balance 130 ml Tube Feeding 100 ml Other 30 ml Laboratory Tests 06/02/17 03:45: White Blood Count 8.8, Red Blood Count 2.86L, Hemoglobin 7.7L, Hematocrit 24.6L , Mean Corpuscular Volume 86, Mean Corpuscular Hemoglobin 26.9L, Mean Corpuscular Hemoglobin Concent 31.3L, Red Cell Distribution Width 16.7H, Platelet Count 742H, Mean Platelet Volume 5.5L, Neutrophils (%) (Auto) , Lymphocytes (%) (Auto) , Monocytes (%) (Auto) , Eosinophils (%) (Auto) , Basophils (%) (Auto) , Differential Total Cells Counted 100, Neutrophils % ( Manual) 78H, Lymphocytes % (Manual) 15L, Monocytes % (Manual) 2, Eosinophils % ( Manual) 0, Basophils % (Manual) 0, Band Neutrophils 5, Platelet Estimate IncreasedH, Platelet Morphology Normal, Hypochromasia 1+, Anisocytosis 1+, Sodium Level 141, Potassium Level 3.3L, Chloride Level 102, Carbon Dioxide Level 27, Anion Gap 12, Blood Urea Nitrogen 11, Creatinine 0.3L, Estimat Glomerular Filtration Rate > 60, Glucose Level 80, Calcium Level 8.6, Vancomycin Level Trough 24.4H Height (Feet): 5 Height (Inches): 5.00 Weight (Pounds): 120 Cardiovascular: normal rate Respiratory/Chest: lungs clear Edema: no edema noted Generalized CHARLES JOSE Jun 02, 2017 12:50
[2017-06-02] MEDS ORDERED: NS 275ml ONE (13:57)
[2017-06-02] MEDS ORDERED: Tubing IV Secondary IV ONE (13:57)
[2017-06-02] MEDS ORDERED: 1/2 NS 1000ml IV ONE (13:57)
[2017-06-02 16:00] VITALS: BP 107/57
--- NOTE | 2017-06-02 17:28 | Brief Operative Note ---
Immediate Post Operative Note Operative Note Pre-op Diagnosis: Stage 4 necrotic right ischial and trochanter ulcer Stage 4 sacral ulcer Osteomyelitis Sacrum Procedure: Deep open bone biopsy of sacrum. Sharp excisional debridement of sacral and right ischial/trochanter ulcers down to muscle Post-op Diagnosis: same as pre-op Surgeon: Kristian Specimen: yes - Sacral bone biopsy for pathology and bone for microbiology Complications: none Condition: stable Fluids: IVF Estimated Blood Loss: minimal Drains: none Implant(s) used?: No LONNIE MARK Jun 02, 2017 17:28
[2017-06-02 20:00] VITALS: BP 131/70
[2017-06-02] MEDS: Bactrim Susp 20ml GT SCH (20:15)
[2017-06-02] MEDS: Zolpidem 5mg tab ORAL PRN (22:49)
[2017-06-03] VITALS: BP 130/61
[2017-06-03 04:00] VITALS: BP 118/79
[2017-06-03] MEDS: Piperacillin/Tazobactam 3.375 GM in NS 110 ML IVPB SCH (06:42)
[2017-06-03 06:46] LABS: ANION GAP 12 (5-15); CALCIUM 8.5 mg/dL (8.6-10.2); CARBON DIOXIDE 27 mEQ/L (20-30); CHLORIDE 99 mEQ/L (98-107); CREATININE 0.4 mg/dL (0.5-0.9); GLOMERULAR FILTRATION RATE > 60 mL/min (>60); HEMOLYSIS 0; POTASSIUM 3.2 mEQ/L (3.4-4.9); SODIUM 138 mEQ/L (135-145)
[2017-06-03 06:48] LABS: HEMOLYSIS 17; IRON 25 ug/dL (37-145); TOTAL IRON BINDING CAPACITY 128 ug/dL (250-400)
[2017-06-03 06:49] LABS: MEAN CORPUSCULAR HEMOGLOBIN 26.9 PG (27.0-31.0); MEAN CORPUSCULAR VOLUME 84 FL (80-99); MEAN PLATELET VOLUME 5.7 FL (6.5-10.1); PLATELET COUNT 745 K/UL (150-450); RED BLOOD COUNT 2.93 M/UL (4.20-5.40); RED CELL DISTRIBUTION WIDTH 16.6 % (11.6-14.8); WHITE BLOOD COUNT 8.6 K/UL (4.8-10.8)
[2017-06-03 08:00] VITALS: BP 116/66
[2017-06-03 08:21] LABS: ANISOCYTOSIS 1+; BAND NEUTROPHILS % (MANUAL) 0 % (0-8); BASOPHILS % (MANUAL) 0 % (0-2); EOSINOPHILS % (MANUAL) 1 % (0-3); HYPOCHROMASIA 1+; LYMPHOCYTES % (MANUAL) 28 % (20-45); NEUTROPHILS % (MANUAL) 68 % (45-75); PLATELET ESTIMATE INCREASED; PLATELET MORPHOLOGY NORMAL; TOTAL CELLS COUNTED 100
[2017-06-03] MEDS: Vancomycin 1250mg/D5W 250ml IVPB SCH (08:21)
[2017-06-03] MEDS: Aspirin EC 325mg tab ORAL SCH (08:21)
[2017-06-03] MEDS: Bactrim Susp 20ml GT SCH ×2 (08:21→20:36)
[2017-06-03] MEDS: Heparin 5000 units/ml inj SUBQ SCH ×2 (08:23→20:36)
--- NOTE | 2017-06-03 11:06 | Infectious Diseases Prog Note ---
Assessment/Plan Assessment/Plan A: E. coli & MRSA sepsis sepsis Infected pressure ulcer & osteomyelitis of sacrum & hip s/p wound debridement Left humerus fracture Anemia VRE colonization P; Change Zosyn to Rocephin Continue IV Vancomycin & PO Bactrim PICC line for halfway antibiotics will f/u bone biopsy culture Subjective ROS Limited/Unobtainable: Yes Allergies: Coded Allergies: No Known Allergies (Unverified , 05/30/17) Objective Vital Signs Last 24 Hour Vital Signs Date Time Temp Pulse Resp B/P (MAP) Pulse Ox O2 Delivery O2 Flow Rate FiO2 06/03/17 08:00 97.3 90 18 116/66 100 Nasal Cannula 3.0 06/03/17 08:00 89 06/03/17 04:00 93 06/03/17 04:00 97.9 88 18 118/79 100 Nasal Cannula 3.0 06/03/17 00:00 98 06/03/17 00:00 96.8 97 20 130/61 100 Nasal Cannula 3.0 06/02/17 20:00 91 06/02/17 20:00 98.3 108 20 131/70 99 Nasal Cannula 3.0 06/02/17 16:00 97.9 82 18 107/57 99 Nasal Cannula 3.0 06/02/17 16:00 87 06/02/17 12:15 95 06/02/17 12:00 97.5 91 18 109/65 100 Nasal Cannula 3.0 Height (Feet): 5 Height (Inches): 5.00 Weight (Pounds): 120 General Appearance: no acute distress HEENT: mucous membranes moist Respiratory/Chest: lungs clear Cardiovascular: normal rate Abdomen: soft, non tender, other - GT feeding Extremities: no edema Skin: ulcers Neurologic/Psychiatric: alert, responsive Microbiology Date/Time Source Procedure Growth Status 06/02/17 17:30 Sacral Wound Gram Stain Pending Resulted 06/02/17 17:30 Sacral Wound Surgical Biopsy Culture - Preliminary NO GROWTH AFTER 24 HOURS Resulted Laboratory Tests Test 06/03/17 06:15 White Blood Count 8.6 K/UL (4.8-10.8) Red Blood Count 2.93 M/UL (4.20-5.40) L Hemoglobin 7.9 G/DL (12.0-16.0) L Hematocrit 24.6 % (37.0-47.0) L Mean Corpuscular Volume 84 FL (80-99) Mean Corpuscular Hemoglobin 26.9 PG (27.0-31.0) L Mean Corpuscular Hemoglobin Concent 32.0 G/DL (32.0-36.0) Red Cell Distribution Width 16.6 % (11.6-14.8) H Platelet Count 745 K/UL (150-450) H Mean Platelet Volume 5.7 FL (6.5-10.1) L Neutrophils (%) (Auto) % (45.0-75.0) Lymphocytes (%) (Auto) % (20.0-45.0) Monocytes (%) (Auto) % (1.0-10.0) Eosinophils (%) (Auto) % (0.0-3.0) Basophils (%) (Auto) % (0.0-2.0) Differential Total Cells Counted 100 Neutrophils % (Manual) 68 % (45-75) Lymphocytes % (Manual) 28 % (20-45) Monocytes % (Manual) 3 % (1-10) Eosinophils % (Manual) 1 % (0-3) Basophils % (Manual) 0 % (0-2) Band Neutrophils 0 % (0-8) Platelet Estimate Increased H Platelet Morphology Normal Hypochromasia 1+ Anisocytosis 1+ Sodium Level 138 mEQ/L (135-145) Potassium Level 3.2 mEQ/L (3.4-4.9) L Chloride Level 99 mEQ/L (98-107) Carbon Dioxide Level 27 mEQ/L (20-30) Anion Gap 12 (5-15) Blood Urea Nitrogen 9 mg/dL (7-23) Creatinine 0.4 mg/dL (0.5-0.9) L Estimat Glomerular Filtration Rate > 60 mL/min (>60) Glucose Level 91 mg/dL (74-106) Calcium Level 8.5 mg/dL (8.6-10.2) L Iron Level 25 ug/dL (37-145) L Total Iron Binding Capacity 128 ug/dL (250-400) L Percent Iron Saturation 20 % (15-50) Unsaturated Iron Binding 103 ug/dL (112-346) L Current Medications Medications (Trade) Dose Ordered Sig/Danielle Route PRN Reason Start Time Stop Time Status Last Admin Dose Admin Acetaminophen (Tylenol) 650 mg Q4H PRN ORAL Mild Pain (Pain Scale 1-3) 05/30/17 14:30 06/29/17 14:29 05/31/17 23:49 Aspirin (Ecotrin) 325 mg DAILY ORAL 05/30/17 16:15 06/29/17 16:14 06/03/17 08:21 Clonazepam (KlonoPIN) 0.5 mg Q6H PRN GT For Anxiety/shaking 06/01/17 00:45 06/08/17 00:44 06/01/17 00:47 Dextrose (Dextrose 50%) STAT PRN IV Hypoglycemia 05/30/17 14:30 06/29/17 14:29 Escitalopram Oxalate (Lexapro) 10 mg DAILY GT 06/01/17 09:00 07/01/17 08:59 06/03/17 08:21 Heparin Sodium (Porcine) (Heparin 5000 units/ml) 5,000 units EVERY 12 HOURS SUBQ 05/30/17 16:00 06/29/17 15:59 06/03/17 08:23 Levothyroxine Sodium (Synthroid) 88 mcg DAILY@0630 GT 06/01/17 06:30 07/01/17 06:29 06/03/17 06:42 Magnesium Hydroxide (Mom) 30 ml HSPRN PRN ORAL Constipation 05/30/17 14:30 06/29/17 14:29 Morphine Sulfate (Morphine Sulfate) 4 mg EVERY 3 HOURS PRN IVP Severe Pain (Pain Scale 7-10) 05/30/17 14:30 06/06/17 14:29 Piperacillin Sod/ Tazobactam Sod 3.375 gm/Sodium Chloride 110 ml @ 27.5 mls/hr Q8HR IVPB 06/02/17 22:00 06/09/17 21:59 06/03/17 06:42 Ranitidine HCl (Zantac) 150 mg TWICE A DAY ORAL 05/30/17 18:00 06/29/17 17:59 06/03/17 08:21 Sodium Chloride 1,000 ml @ 50 mls/hr Q20H IV 05/30/17 16:00 06/29/17 15:59 06/02/17 21:17 Trimethoprim/ Sulfamethoxazole (Bactrim-DS) 20 ml EVERY 12 HOURS GT 06/02/17 21:00 06/09/17 20:59 06/03/17 08:21 Vancomycin HCl (Vanco rx to dose) 1 ea DAILY PRN MISC Per rx protocol 05/30/17 14:30 06/29/17 14:29 Vancomycin HCl/ Dextrose 250 ml @ 166.667 mls/hr Q24H IVPB 06/02/17 09:00 06/07/17 08:59 06/03/17 08:21 Zolpidem Tartrate (Ambien) 5 mg DAILYPRN PRN ORAL Insomnia 05/30/17 14:30 06/06/17 14:29 06/02/17 22:49 CALEB JOSE Jun 03, 2017 11:06
[2017-06-03] MEDS ORDERED: Heparin 2000 units/Ns 1000ml INJ ONE (11:15)
[2017-06-03] MEDS ORDERED: Lidocaine 1% Plain 30 ml INJ ONE (11:15)
[2017-06-03] MEDS: cefTRIAXone 2 GM in D5W 110 ML IVPB SCH (11:57)
[2017-06-03 12:00] VITALS: BP 107/61
[2017-06-03] MEDS ORDERED: 1/2 NS 1000ml IV ONE (14:01)
--- NOTE | 2017-06-03 15:16 | Diagnostic Imaging Report ---
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 The right upper extremity was prepped with alcohol. All elements of maximal sterile barrier technique were followed including usage of a cap, mask, sterile gown, sterile gloves, hand hygiene and a large sterile sheet. Sonographic evaluation of the upper extremity was performed demonstrating a patent and compressible basilic vein. Access was obtained under real-time ultrasound guidance and digital image was saved and archived. An .018 wire was introduced. Needle exchanged for a 5 Qatari peel-away sheath. Measurements were obtained. A 5 Qatari dual-lumen Power PICC line catheter was cut to 35 cm and introduced over the wire. Peel-away sheath and wire were removed.Catheter was secured to the skin using 2-0 Prolene suture. Both ports aspirate and flush easily. Fluoroscopic Images show distal tip in the superior vena cava. Total fluoroscopic time 0.1 minute Impression: Successful placement of an upper extremity PICC line catheter
[2017-06-03 16:00] VITALS: BP 133/73
--- NOTE | 2017-06-03 16:19 | General Progress Note ---
Assessment/Plan Problem List: (1) Sepsis ICD Codes: A41.9 - Sepsis, unspecified organism SNOMED: 15007492 Qualifiers: Qualified Codes: A41.9 - Sepsis, unspecified organism (2) Altered level of consciousness ICD Codes: R40.4 - Transient alteration of awareness SNOMED: 3692000 (3) Gram-neg septicemia ICD Codes: A41.50 - Gram-negative sepsis, unspecified SNOMED: 072035460 (4) Sacral decubitus ulcer, stage IV ICD Codes: L89.154 - Pressure ulcer of sacral region, stage 4 SNOMED: 468499029, 935015041 (5) Hypokalemia ICD Codes: E87.6 - Hypokalemia SNOMED: 39001719 Assessment/Plan abxs wound care Replete K follow labs DNR, DNI Discussed with RN Subjective Allergies: Coded Allergies: No Known Allergies (Unverified , 05/30/17) Subjective In NAD Objective Last 24 Hour Vital Signs Date Time Temp Pulse Resp B/P (MAP) Pulse Ox O2 Delivery O2 Flow Rate FiO2 06/03/17 14:00 97.7 06/03/17 12:18 89 06/03/17 12:00 97.7 97 18 107/61 100 Nasal Cannula 3.0 06/03/17 08:00 97.3 90 18 116/66 100 Nasal Cannula 3.0 06/03/17 08:00 89 06/03/17 04:00 93 06/03/17 04:00 97.9 88 18 118/79 100 Nasal Cannula 3.0 06/03/17 00:00 98 06/03/17 00:00 96.8 97 20 130/61 100 Nasal Cannula 3.0 06/02/17 20:00 91 06/02/17 20:00 98.3 108 20 131/70 99 Nasal Cannula 3.0 Intake and Output 06/03/17 06/04/17 19:00 07:00 Intake Total 825.667 ml Balance 825.667 ml IV Total 655.667 ml Tube Feeding 140 ml Other 30 ml Laboratory Tests 06/03/17 06:15: White Blood Count 8.6, Red Blood Count 2.93L, Hemoglobin 7.9L, Hematocrit 24.6L , Mean Corpuscular Volume 84, Mean Corpuscular Hemoglobin 26.9L, Mean Corpuscular Hemoglobin Concent 32.0, Red Cell Distribution Width 16.6H, Platelet Count 745H, Mean Platelet Volume 5.7L, Neutrophils (%) (Auto) , Lymphocytes (%) (Auto) , Monocytes (%) (Auto) , Eosinophils (%) (Auto) , Basophils (%) (Auto) , Differential Total Cells Counted 100, Neutrophils % ( Manual) 68, Lymphocytes % (Manual) 28, Monocytes % (Manual) 3, Eosinophils % ( Manual) 1, Basophils % (Manual) 0, Band Neutrophils 0, Platelet Estimate IncreasedH, Platelet Morphology Normal, Hypochromasia 1+, Anisocytosis 1+, Sodium Level 138, Potassium Level 3.2L, Chloride Level 99, Carbon Dioxide Level 27, Anion Gap 12, Blood Urea Nitrogen 9, Creatinine 0.4L, Estimat Glomerular Filtration Rate > 60, Glucose Level 91, Calcium Level 8.5L, Iron Level 25L, Total Iron Binding Capacity 128L, Percent Iron Saturation 20, Unsaturated Iron Binding 103L Height (Feet): 5 Height (Inches): 5.00 Weight (Pounds): 120 Cardiovascular: normal rate Respiratory/Chest: lungs clear CHARLES JOSE Jun 03, 2017 16:19
[2017-06-03] MEDS: KCl 10% 40mEq/30ml liquid NG SCH (17:21)
[2017-06-03 20:00] VITALS: BP 101/66
[2017-06-03] MEDS: clonazePAM 0.5mg tab GT PRN (23:39)
[2017-06-03] MEDS: Zolpidem 5mg tab ORAL PRN (23:39)
[2017-06-04] VITALS (7 sets, daily range): BP systolic 106–130; BP diastolic 58–76
[2017-06-04 05:36] LABS: ANION GAP 8 (5-15); CALCIUM 8.5 mg/dL (8.6-10.2); CARBON DIOXIDE 29 mEQ/L (20-30); CHLORIDE 103 mEQ/L (98-107); CREATININE 0.4 mg/dL (0.5-0.9); GLOMERULAR FILTRATION RATE > 60 mL/min (>60); HEMOLYSIS 0; POTASSIUM 4.2 mEQ/L (3.4-4.9); SODIUM 140 mEQ/L (135-145)
[2017-06-04] MEDS: clonazePAM 0.5mg tab GT PRN (06:21)
[2017-06-04 07:44] LABS: MEAN CORPUSCULAR HEMOGLOBIN 26.9 PG (27.0-31.0); MEAN CORPUSCULAR HGB CONC 31.6 G/DL (32.0-36.0); MEAN CORPUSCULAR VOLUME 85 FL (80-99); MEAN PLATELET VOLUME 5.1 FL (6.5-10.1); PLATELET COUNT 717 K/UL (150-450); RED BLOOD COUNT 2.65 M/UL (4.20-5.40); RED CELL DISTRIBUTION WIDTH 16.9 % (11.6-14.8); WHITE BLOOD COUNT 5.5 K/UL (4.8-10.8)
[2017-06-04 08:27] LABS: EOSINOPHILS % (MANUAL) 3 % (0-3); LYMPHOCYTES % (MANUAL) 22 % (20-45); NEUTROPHILS % (MANUAL) 73 % (45-75); TOTAL CELLS COUNTED 100
[2017-06-04] MEDS: Bactrim Susp 20ml GT SCH ×2 (08:27→21:28)
[2017-06-04] MEDS: Aspirin EC 325mg tab ORAL SCH (08:27)
[2017-06-04 08:28] LABS: ANISOCYTOSIS 2+; BAND NEUTROPHILS % (MANUAL) 0 % (0-8); BASOPHILS % (MANUAL) 0 % (0-2); HYPOCHROMASIA 2+; PLATELET MORPHOLOGY NORMAL
[2017-06-04] MEDS: Dyna-Hex 2% Top Sol 2oz TOPIC SCH (08:28)
[2017-06-04] MEDS: Heparin 5000 units/ml inj SUBQ SCH ×2 (08:28→21:29)
[2017-06-04] MEDS: KCl 10% 40mEq/30ml liquid NG SCH (08:33)
[2017-06-04] MEDS: Vancomycin 1250mg/D5W 250ml IVPB SCH (08:33)
[2017-06-04 08:49] LABS: PLATELET ESTIMATE INCREASED
--- NOTE | 2017-06-04 10:17 | General Progress Note ---
Assessment/Plan Problem List: (1) Sepsis ICD Codes: A41.9 - Sepsis, unspecified organism SNOMED: 29504002 Qualifiers: Qualified Codes: A41.9 - Sepsis, unspecified organism (2) Altered level of consciousness ICD Codes: R40.4 - Transient alteration of awareness SNOMED: 2645101 (3) Gram-neg septicemia ICD Codes: A41.50 - Gram-negative sepsis, unspecified SNOMED: 193741960 (4) Sacral decubitus ulcer, stage IV ICD Codes: L89.154 - Pressure ulcer of sacral region, stage 4 SNOMED: 631729479, 466069579 (5) Hypokalemia ICD Codes: E87.6 - Hypokalemia SNOMED: 02734838 Assessment/Plan abxs wound care transfuse for further drop in HCT follow labs DNR, DNI Subjective Allergies: Coded Allergies: No Known Allergies (Unverified , 05/30/17) Subjective In NAD Objective Last 24 Hour Vital Signs Date Time Temp Pulse Resp B/P (MAP) Pulse Ox O2 Delivery O2 Flow Rate FiO2 06/04/17 08:00 97 06/04/17 08:00 97.5 102 16 130/76 100 Nasal Cannula 3.0 06/04/17 04:01 97.5 89 19 106/65 98 Nasal Cannula 3.0 06/04/17 03:59 94 06/04/17 00:00 100 06/04/17 00:00 97.5 95 18 110/66 99 Nasal Cannula 3.0 06/03/17 21:00 101 06/03/17 20:00 97.7 100 19 101/66 99 Nasal Cannula 3.0 06/03/17 16:00 97.9 117 18 133/73 98 Nasal Cannula 3.0 06/03/17 16:00 112 06/03/17 14:00 97.7 06/03/17 12:18 89 06/03/17 12:00 97.7 97 18 107/61 100 Nasal Cannula 3.0 Laboratory Tests 06/04/17 04:00: White Blood Count 5.5, Red Blood Count 2.65L, Hemoglobin 7.1L, Hematocrit 22.6L , Mean Corpuscular Volume 85, Mean Corpuscular Hemoglobin 26.9L, Mean Corpuscular Hemoglobin Concent 31.6L, Red Cell Distribution Width 16.9H, Platelet Count 717H, Mean Platelet Volume 5.1L, Neutrophils (%) (Auto) , Lymphocytes (%) (Auto) , Monocytes (%) (Auto) , Eosinophils (%) (Auto) , Basophils (%) (Auto) , Differential Total Cells Counted 100, Neutrophils % ( Manual) 73, Lymphocytes % (Manual) 22, Monocytes % (Manual) 2, Eosinophils % ( Manual) 3, Basophils % (Manual) 0, Band Neutrophils 0, Platelet Estimate IncreasedH, Platelet Morphology Normal, Hypochromasia 2+, Anisocytosis 2+, Sodium Level 140, Potassium Level 4.2, Chloride Level 103, Carbon Dioxide Level 29, Anion Gap 8, Blood Urea Nitrogen 8, Creatinine 0.4L, Estimat Glomerular Filtration Rate > 60, Glucose Level 118H, Calcium Level 8.5L, Magnesium Level 2.1 Height (Feet): 5 Height (Inches): 5.00 Weight (Pounds): 120 Cardiovascular: normal rate Respiratory/Chest: lungs clear Edema: no edema noted Generalized CHARLES JOSE Jun 04, 2017 10:16
[2017-06-04 11:11] LABS: BASOPHILS % (AUTO) 0.5 % (0.0-2.0); EOSINOPHILS % (AUTO) 0.4 % (0.0-3.0); LYMPHOCYTES % (AUTO) 24.4 % (20.0-45.0); MEAN CORPUSCULAR HEMOGLOBIN 26.4 PG (27.0-31.0); MEAN CORPUSCULAR HGB CONC 30.4 G/DL (32.0-36.0); MEAN CORPUSCULAR VOLUME 87 FL (80-99); MEAN PLATELET VOLUME 5.6 FL (6.5-10.1); MONOCYTES % (AUTO) 8.2 % (1.0-10.0); NEUTROPHILS % (AUTO) 66.5 % (45.0-75.0); PLATELET COUNT 785 K/UL (150-450); RED BLOOD COUNT 3.44 M/UL (4.20-5.40); RED CELL DISTRIBUTION WIDTH 17.2 % (11.6-14.8); WHITE BLOOD COUNT 8.8 K/UL (4.8-10.8)
[2017-06-04] MEDS: cefTRIAXone 2 GM in D5W 110 ML IVPB SCH (11:23)
--- NOTE | 2017-06-04 12:53 | Infectious Diseases Prog Note ---
Assessment/Plan Assessment/Plan A: E. coli & MRSA sepsis sepsis Infected pressure ulcer & osteomyelitis of sacrum & hip s/p wound debridement Left humerus fracture Anemia VRE colonization Diarrhea P; Continue Rocephin, IV Vancomycin & PO Bactrim will f/u bone biopsy culture will order C. difficile test Subjective ROS Limited/Unobtainable: Yes Gastrointestinal/Abdominal: Reports: diarrhea, other - pasty stool Allergies: Coded Allergies: No Known Allergies (Unverified , 05/30/17) Objective Vital Signs Last 24 Hour Vital Signs Date Time Temp Pulse Resp B/P (MAP) Pulse Ox O2 Delivery O2 Flow Rate FiO2 06/04/17 12:05 97.0 101 16 120/66 98 Nasal Cannula 3.0 06/04/17 08:00 97 06/04/17 08:00 97.5 102 16 130/76 100 Nasal Cannula 3.0 06/04/17 04:01 97.5 89 19 106/65 98 Nasal Cannula 3.0 06/04/17 03:59 94 06/04/17 00:00 100 06/04/17 00:00 97.5 95 18 110/66 99 Nasal Cannula 3.0 06/03/17 21:00 101 06/03/17 20:00 97.7 100 19 101/66 99 Nasal Cannula 3.0 06/03/17 16:00 97.9 117 18 133/73 98 Nasal Cannula 3.0 06/03/17 16:00 112 06/03/17 14:00 97.7 Height (Feet): 5 Height (Inches): 5.00 Weight (Pounds): 120 General Appearance: cachetic HEENT: mucous membranes moist Respiratory/Chest: lungs clear Cardiovascular: tachycardia Abdomen: soft, non tender, other - GT feeding Extremities: no edema, other - R arm PICC line Neurologic/Psychiatric: other - sleeping Musculoskeletal: atrophy Microbiology Date/Time Source Procedure Growth Status 06/02/17 17:30 Sacral Wound Gram Stain - Final Resulted 06/02/17 17:30 Surgical Biopsy Culture - Preliminary Staphylococcus Aureus Gram Negative Bacillus 2 Gram Negative Bacillus 3 Resulted Laboratory Tests Test 06/04/17 04:00 06/04/17 10:30 White Blood Count 5.5 K/UL (4.8-10.8) 8.8 K/UL (4.8-10.8) # Red Blood Count 2.65 M/UL (4.20-5.40) L 3.44 M/UL (4.20-5.40) L Hemoglobin 7.1 G/DL (12.0-16.0) L 9.1 G/DL (12.0-16.0) L Hematocrit 22.6 % (37.0-47.0) L 29.8 % (37.0-47.0) #L Mean Corpuscular Volume 85 FL (80-99) 87 FL (80-99) Mean Corpuscular Hemoglobin 26.9 PG (27.0-31.0) L 26.4 PG (27.0-31.0) L Mean Corpuscular Hemoglobin Concent 31.6 G/DL (32.0-36.0) L 30.4 G/DL (32.0-36.0) L Red Cell Distribution Width 16.9 % (11.6-14.8) H 17.2 % (11.6-14.8) H Platelet Count 717 K/UL (150-450) H 785 K/UL (150-450) H Mean Platelet Volume 5.1 FL (6.5-10.1) L 5.6 FL (6.5-10.1) L Neutrophils (%) (Auto) % (45.0-75.0) 66.5 % (45.0-75.0) Lymphocytes (%) (Auto) % (20.0-45.0) 24.4 % (20.0-45.0) Monocytes (%) (Auto) % (1.0-10.0) 8.2 % (1.0-10.0) Eosinophils (%) (Auto) % (0.0-3.0) 0.4 % (0.0-3.0) Basophils (%) (Auto) % (0.0-2.0) 0.5 % (0.0-2.0) Differential Total Cells Counted 100 Neutrophils % (Manual) 73 % (45-75) Lymphocytes % (Manual) 22 % (20-45) Monocytes % (Manual) 2 % (1-10) Eosinophils % (Manual) 3 % (0-3) Basophils % (Manual) 0 % (0-2) Band Neutrophils 0 % (0-8) Platelet Estimate Increased H Platelet Morphology Normal Hypochromasia 2+ Anisocytosis 2+ Sodium Level 140 mEQ/L (135-145) Potassium Level 4.2 mEQ/L (3.4-4.9) Chloride Level 103 mEQ/L (98-107) Carbon Dioxide Level 29 mEQ/L (20-30) Anion Gap 8 (5-15) Blood Urea Nitrogen 8 mg/dL (7-23) Creatinine 0.4 mg/dL (0.5-0.9) L Estimat Glomerular Filtration Rate > 60 mL/min (>60) Glucose Level 118 mg/dL (74-106) H Calcium Level 8.5 mg/dL (8.6-10.2) L Magnesium Level 2.1 mg/dL (1.7-2.5) Current Medications Medications (Trade) Dose Ordered Sig/Danielle Route PRN Reason Start Time Stop Time Status Last Admin Dose Admin Acetaminophen (Tylenol) 650 mg Q4H PRN ORAL Mild Pain (Pain Scale 1-3) 05/30/17 14:30 06/29/17 14:29 05/31/17 23:49 Aspirin (Ecotrin) 325 mg DAILY ORAL 05/30/17 16:15 06/29/17 16:14 06/04/17 08:27 Ceftriaxone Sodium 2 gm/ Dextrose 110 ml @ 220 mls/hr Q24H IVPB 06/03/17 12:00 06/10/17 11:59 06/04/17 11:23 Chlorhexidine Gluconate (Audrey-Hex 2%) 1 applic DAILY TOPIC 06/04/17 09:00 07/04/17 08:59 06/04/17 08:28 Clonazepam (KlonoPIN) 0.5 mg Q6H PRN GT For Anxiety/shaking 06/01/17 00:45 06/08/17 00:44 06/04/17 06:21 Dextrose (Dextrose 50%) STAT PRN IV Hypoglycemia 05/30/17 14:30 06/29/17 14:29 Escitalopram Oxalate (Lexapro) 10 mg DAILY GT 06/01/17 09:00 07/01/17 08:59 06/04/17 08:28 Heparin Sodium (Porcine) (Heparin 5000 units/ml) 5,000 units EVERY 12 HOURS SUBQ 05/30/17 16:00 06/29/17 15:59 06/04/17 08:28 Levothyroxine Sodium (Synthroid) 88 mcg DAILY@0630 GT 06/01/17 06:30 07/01/17 06:29 06/04/17 06:18 Magnesium Hydroxide (Mom) 30 ml HSPRN PRN ORAL Constipation 05/30/17 14:30 06/29/17 14:29 Morphine Sulfate (Morphine Sulfate) 4 mg EVERY 3 HOURS PRN IVP Severe Pain (Pain Scale 7-10) 05/30/17 14:30 06/06/17 14:29 06/03/17 13:39 Potassium Chloride (KCl 10% 40mEq Oral solution) 40 meq DAILY NG 06/03/17 16:30 07/03/17 16:29 06/04/17 08:33 Ranitidine HCl (Zantac) 150 mg TWICE A DAY ORAL 05/30/17 18:00 06/29/17 17:59 06/04/17 08:28 Sodium Chloride 1,000 ml @ 50 mls/hr Q20H IV 05/30/17 16:00 06/29/17 15:59 06/03/17 20:00 Trimethoprim/ Sulfamethoxazole (Bactrim-DS) 20 ml EVERY 12 HOURS GT 06/02/17 21:00 06/09/17 20:59 06/04/17 08:27 Vancomycin HCl (Vanco rx to dose) 1 ea DAILY PRN MISC Per rx protocol 05/30/17 14:30 06/29/17 14:29 Vancomycin HCl/ Dextrose 250 ml @ 166.667 mls/hr Q24H IVPB 06/02/17 09:00 06/07/17 08:59 06/04/17 08:33 Zolpidem Tartrate (Ambien) 5 mg DAILYPRN PRN ORAL Insomnia 05/30/17 14:30 06/06/17 14:29 06/03/17 23:39 CALEB JOSE Jun 04, 2017 12:53
[2017-06-04] MEDS: Zolpidem 5mg tab ORAL PRN (21:37)
[2017-06-05 04:00] VITALS: BP 134/71
[2017-06-05 05:11] LABS: ANION GAP 10 (5-15); CALCIUM 9.2 mg/dL (8.6-10.2); CARBON DIOXIDE 29 mEQ/L (20-30); CHLORIDE 98 mEQ/L (98-107); CREATININE 0.4 mg/dL (0.5-0.9); GLOMERULAR FILTRATION RATE > 60 mL/min (>60); HEMOLYSIS 0; SODIUM 137 mEQ/L (135-145)
[2017-06-05 05:13] LABS: MEAN CORPUSCULAR HEMOGLOBIN 27.2 PG (27.0-31.0); MEAN CORPUSCULAR HGB CONC 32.2 G/DL (32.0-36.0); MEAN CORPUSCULAR VOLUME 84 FL (80-99); MEAN PLATELET VOLUME 5.5 FL (6.5-10.1); PLATELET COUNT 767 K/UL (150-450); RED BLOOD COUNT 2.87 M/UL (4.20-5.40); RED CELL DISTRIBUTION WIDTH 17.4 % (11.6-14.8)
[2017-06-05 07:30] LABS: LYMPHOCYTES % (MANUAL) 23 % (20-45); NEUTROPHILS % (MANUAL) 73 % (45-75); TOTAL CELLS COUNTED 100
[2017-06-05 07:31] LABS: BAND NEUTROPHILS % (MANUAL) 0 % (0-8); BASOPHILS % (MANUAL) 0 % (0-2); EOSINOPHILS % (MANUAL) 0 % (0-3); HYPOCHROMASIA 1+; PLATELET ESTIMATE INCREASED
[2017-06-05 07:32] LABS: ANISOCYTOSIS 1+; PLATELET MORPHOLOGY NORMAL
[2017-06-05 08:00] VITALS: BP 135/65
[2017-06-05] MEDS: KCl 10% 40mEq/30ml liquid NG SCH (08:19)
[2017-06-05] MEDS: Aspirin EC 325mg tab ORAL SCH (08:19)
[2017-06-05] MEDS: Dyna-Hex 2% Top Sol 2oz TOPIC SCH (08:19)
[2017-06-05] MEDS: Bactrim Susp 20ml GT SCH ×2 (08:19→20:48)
[2017-06-05] MEDS: Heparin 5000 units/ml inj SUBQ SCH ×2 (08:21→20:50)
[2017-06-05 08:34] LABS: MEAN CORPUSCULAR HEMOGLOBIN 26.6 PG (27.0-31.0); MEAN CORPUSCULAR HGB CONC 30.9 G/DL (32.0-36.0); MEAN CORPUSCULAR VOLUME 86 FL (80-99); MEAN PLATELET VOLUME 5.6 FL (6.5-10.1); PLATELET COUNT 811 K/UL (150-450); RED BLOOD COUNT 3.08 M/UL (4.20-5.40); RED CELL DISTRIBUTION WIDTH 17.4 % (11.6-14.8); WHITE BLOOD COUNT 7.4 K/UL (4.8-10.8)
[2017-06-05 10:46] LABS: ANISOCYTOSIS 1+; BAND NEUTROPHILS % (MANUAL) 4 % (0-8); BASOPHILS % (MANUAL) 0 % (0-2); EOSINOPHILS % (MANUAL) 0 % (0-3); HYPOCHROMASIA 1+; LYMPHOCYTES % (MANUAL) 33 % (20-45); NEUTROPHILS % (MANUAL) 60 % (45-75); PLATELET ESTIMATE INCREASED; PLATELET MORPHOLOGY NORMAL; TOTAL CELLS COUNTED 100
[2017-06-05] MEDS: Vancomycin 1250mg/D5W 250ml IVPB SCH (10:59)
--- NOTE | 2017-06-05 11:25 | Infectious Diseases Prog Note ---
"Assessment/Plan Assessment/Plan antibiotics : vancomycin iv, ceftriaxone, bactrim A 1. MRSA | e. coli sepsis 2. sacral osteomyelitis s/p debridement with MRSA | providencia | acenitobacter | streptococcus 3. left humerus fracture 4. rectal VRE colonization P 1. continue vancomycin iv, ceftriaxone, bactrim 2. 2 d echo 3. will follow up cultures Subjective ROS Limited/Unobtainable: Yes Allergies: Coded Allergies: No Known Allergies (Unverified , 05/30/17) Objective Vital Signs Last 24 Hour Vital Signs Date Time Temp Pulse Resp B/P (MAP) Pulse Ox O2 Delivery O2 Flow Rate FiO2 06/05/17 08:00 98.4 110 16 135/65 100 Nasal Cannula 3.0 06/05/17 07:48 103 06/05/17 04:00 97.7 100 18 134/71 98 Nasal Cannula 3.0 06/05/17 04:00 100 06/05/17 00:00 95 06/04/17 23:41 97.8 100 18 112/58 98 Nasal Cannula 3.0 06/04/17 20:32 92 06/04/17 20:00 97.3 93 18 114/62 98 Nasal Cannula 3.0 06/04/17 16:00 97.7 99 18 117/68 98 Nasal Cannula 3.0 06/04/17 15:32 86 06/04/17 12:05 97.0 101 16 120/66 98 Nasal Cannula 3.0 06/04/17 12:00 89 Height (Feet): 5 Height (Inches): 5.00 Weight (Pounds): 120 Respiratory/Chest: lungs clear Cardiovascular: normal rate, regular rhythm, no gallop/murmur Abdomen: soft, non tender, other - GT Extremities: no edema, other - right arm PICC Microbiology Date/Time Source Procedure Growth Status 06/04/17 13:00 Stool Clostridium difficile Toxin Assay - Final Complete 06/02/17 17:30 Sacral Wound Gram Stain - Final Resulted 06/02/17 17:30 Surgical Biopsy Culture - Preliminary Staphylococcus Aureus - Mrsa Providencia Stuartii A.baumanii Complx - Mdr Strep Species, Gamma-Hemolytic Resulted Laboratory Tests Test 06/05/17 04:00 06/05/17 08:05 White Blood Count 7.0 K/UL (4.8-10.8) 7.4 K/UL (4.8-10.8) Red Blood Count 2.87 M/UL (4.20-5.40) L 3.08 M/UL (4.20-5.40) L Hemoglobin 7.8 G/DL (12.0-16.0) L 8.2 G/DL (12.0-16.0) L Hematocrit 24.3 % (37.0-47.0) L 26.6 % (37.0-47.0) L Mean Corpuscular Volume 84 FL (80-99) 86 FL (80-99) Mean Corpuscular Hemoglobin 27.2 PG (27.0-31.0) 26.6 PG (27.0-31.0) L Mean Corpuscular Hemoglobin Concent 32.2 G/DL (32.0-36.0) 30.9 G/DL (32.0-36.0) L Red Cell Distribution Width 17.4 % (11.6-14.8) H 17.4 % (11.6-14.8) H Platelet Count 767 K/UL (150-450) H 811 K/UL (150-450) H Mean Platelet Volume 5.5 FL (6.5-10.1) L 5.6 FL (6.5-10.1) L Neutrophils (%) (Auto) % (45.0-75.0) % (45.0-75.0) Lymphocytes (%) (Auto) % (20.0-45.0) % (20.0-45.0) Monocytes (%) (Auto) % (1.0-10.0) % (1.0-10.0) Eosinophils (%) (Auto) % (0.0-3.0) % (0.0-3.0) Basophils (%) (Auto) % (0.0-2.0) % (0.0-2.0) Differential Total Cells Counted 100 100 Neutrophils % (Manual) 73 % (45-75) 60 % (45-75) Lymphocytes % (Manual) 23 % (20-45) 33 % (20-45) Monocytes % (Manual) 4 % (1-10) 3 % (1-10) Eosinophils % (Manual) 0 % (0-3) 0 % (0-3) Basophils % (Manual) 0 % (0-2) 0 % (0-2) Band Neutrophils 0 % (0-8) 4 % (0-8) Platelet Estimate Increased H Increased H Platelet Morphology Normal Normal Hypochromasia 1+ 1+ Anisocytosis 1+ 1+ Sodium Level 137 mEQ/L (135-145) Potassium Level 4.0 mEQ/L (3.4-4.9) Chloride Level 98 mEQ/L (98-107) Carbon Dioxide Level 29 mEQ/L (20-30) Anion Gap 10 (5-15) Blood Urea Nitrogen 7 mg/dL (7-23) Creatinine 0.4 mg/dL (0.5-0.9) L Estimat Glomerular Filtration Rate > 60 mL/min (>60) Glucose Level 113 mg/dL (74-106) H Calcium Level 9.2 mg/dL (8.6-10.2) Vancomycin Level Trough 17.4 ug/mL (5.0-12.0) H JULISSA GOMEZ Jun 05, 2017 11:25"
[2017-06-05 12:00] VITALS: BP 122/60
[2017-06-05] MEDS: cefTRIAXone 2 GM in D5W 110 ML IVPB SCH (13:16)
--- NOTE | 2017-06-05 13:44 | General Progress Note ---
Assessment/Plan Problem List: (1) Sepsis ICD Codes: A41.9 - Sepsis, unspecified organism SNOMED: 32046471 Qualifiers: Qualified Codes: A41.9 - Sepsis, unspecified organism (2) Altered level of consciousness ICD Codes: R40.4 - Transient alteration of awareness SNOMED: 0693579 (3) Gram-neg septicemia ICD Codes: A41.50 - Gram-negative sepsis, unspecified SNOMED: 982088445 (4) Sacral decubitus ulcer, stage IV ICD Codes: L89.154 - Pressure ulcer of sacral region, stage 4 SNOMED: 818922850, 195607718 (5) Hypokalemia ICD Codes: E87.6 - Hypokalemia SNOMED: 27853816 Assessment/Plan abxs wound care transfuse for further drop in HCT follow labs DNR, DNI discussed with RN Subjective Allergies: Coded Allergies: No Known Allergies (Unverified , 05/30/17) Subjective In NAD Objective Last 24 Hour Vital Signs Date Time Temp Pulse Resp B/P (MAP) Pulse Ox O2 Delivery O2 Flow Rate FiO2 06/05/17 12:00 98.1 108 18 122/60 100 Nasal Cannula 3.0 06/05/17 11:50 98 06/05/17 08:00 98.4 110 16 135/65 100 Nasal Cannula 3.0 06/05/17 07:48 103 06/05/17 04:00 97.7 100 18 134/71 98 Nasal Cannula 3.0 06/05/17 04:00 100 06/05/17 00:00 95 06/04/17 23:41 97.8 100 18 112/58 98 Nasal Cannula 3.0 06/04/17 20:32 92 06/04/17 20:00 97.3 93 18 114/62 98 Nasal Cannula 3.0 06/04/17 16:00 97.7 99 18 117/68 98 Nasal Cannula 3.0 06/04/17 15:32 86 Intake and Output 06/05/17 06/06/17 19:00 07:00 Intake Total 860.800 ml Balance 860.800 ml IV Total 540.800 ml Tube Feeding 260 ml Other 60 ml # Bowel Movements 1 Laboratory Tests 06/05/17 04:00: White Blood Count 7.0, Red Blood Count 2.87L, Hemoglobin 7.8L, Hematocrit 24.3L , Mean Corpuscular Volume 84, Mean Corpuscular Hemoglobin 27.2, Mean Corpuscular Hemoglobin Concent 32.2, Red Cell Distribution Width 17.4H, Platelet Count 767H, Mean Platelet Volume 5.5L, Neutrophils (%) (Auto) , Lymphocytes (%) (Auto) , Monocytes (%) (Auto) , Eosinophils (%) (Auto) , Basophils (%) (Auto) , Differential Total Cells Counted 100, Neutrophils % ( Manual) 73, Lymphocytes % (Manual) 23, Monocytes % (Manual) 4, Eosinophils % ( Manual) 0, Basophils % (Manual) 0, Band Neutrophils 0, Platelet Estimate IncreasedH, Platelet Morphology Normal, Hypochromasia 1+, Anisocytosis 1+, Sodium Level 137, Potassium Level 4.0, Chloride Level 98, Carbon Dioxide Level 29, Anion Gap 10, Blood Urea Nitrogen 7, Creatinine 0.4L, Estimat Glomerular Filtration Rate > 60, Glucose Level 113H, Calcium Level 9.2 06/05/17 08:05: White Blood Count 7.4, Red Blood Count 3.08L, Hemoglobin 8.2L, Hematocrit 26.6L , Mean Corpuscular Volume 86, Mean Corpuscular Hemoglobin 26.6L, Mean Corpuscular Hemoglobin Concent 30.9L, Red Cell Distribution Width 17.4H, Platelet Count 811H, Mean Platelet Volume 5.6L, Neutrophils (%) (Auto) , Lymphocytes (%) (Auto) , Monocytes (%) (Auto) , Eosinophils (%) (Auto) , Basophils (%) (Auto) , Differential Total Cells Counted 100, Neutrophils % ( Manual) 60, Lymphocytes % (Manual) 33, Monocytes % (Manual) 3, Eosinophils % ( Manual) 0, Basophils % (Manual) 0, Band Neutrophils 4, Platelet Estimate IncreasedH, Platelet Morphology Normal, Hypochromasia 1+, Anisocytosis 1+, Vancomycin Level Trough 17.4H Height (Feet): 5 Height (Inches): 5.00 Weight (Pounds): 120 Cardiovascular: normal rate Respiratory/Chest: lungs clear CHARLES JOSE Jun 05, 2017 13:44
[2017-06-05 16:00] VITALS: BP 117/58
[2017-06-05 20:00] VITALS: BP 137/61
[2017-06-05] MEDS: Zolpidem 5mg tab ORAL PRN (23:06)
[2017-06-05 23:40] VITALS: BP 130/60
[2017-06-06 03:20] VITALS: BP 134/84
[2017-06-06] MEDS: Lomotil 2.5mg tab GT PRN (04:06)
[2017-06-06 07:26] LABS: MEAN CORPUSCULAR HEMOGLOBIN 25.7 PG (27.0-31.0); MEAN CORPUSCULAR HGB CONC 29.9 G/DL (32.0-36.0); MEAN CORPUSCULAR VOLUME 86 FL (80-99); MEAN PLATELET VOLUME 5.3 FL (6.5-10.1); PLATELET COUNT 744 K/UL (150-450); RED BLOOD COUNT 2.97 M/UL (4.20-5.40); RED CELL DISTRIBUTION WIDTH 17.4 % (11.6-14.8); WHITE BLOOD COUNT 5.9 K/UL (4.8-10.8)
[2017-06-06 08:00] VITALS: BP 119/66
[2017-06-06 08:11] LABS: BASOPHILS % (AUTO) 0.7 % (0.0-2.0); EOSINOPHILS % (AUTO) 0.4 % (0.0-3.0); LYMPHOCYTES % (AUTO) 25.3 % (20.0-45.0); MEAN CORPUSCULAR HEMOGLOBIN 25.9 PG (27.0-31.0); MEAN CORPUSCULAR HGB CONC 30.1 G/DL (32.0-36.0); MEAN CORPUSCULAR VOLUME 86 FL (80-99); MEAN PLATELET VOLUME 5.4 FL (6.5-10.1); MONOCYTES % (AUTO) 7.7 % (1.0-10.0); NEUTROPHILS % (AUTO) 65.8 % (45.0-75.0); PLATELET COUNT 764 K/UL (150-450); RED BLOOD COUNT 3.23 M/UL (4.20-5.40); RED CELL DISTRIBUTION WIDTH 18.1 % (11.6-14.8); WHITE BLOOD COUNT 6.4 K/UL (4.8-10.8)
[2017-06-06 08:14] LABS: BAND NEUTROPHILS % (MANUAL) 0 % (0-8); BASOPHILS % (MANUAL) 0 % (0-2); EOSINOPHILS % (MANUAL) 1 % (0-3); LYMPHOCYTES % (MANUAL) 22 % (20-45); NEUTROPHILS % (MANUAL) 69 % (45-75); PLATELET ESTIMATE INCREASED; TOTAL CELLS COUNTED 100
[2017-06-06 08:15] LABS: ANISOCYTOSIS 1+; HYPOCHROMASIA 1+; PLATELET MORPHOLOGY NORMAL
[2017-06-06] MEDS ORDERED: Tubing IV Secondary IV ONE (08:40)
[2017-06-06] MEDS ORDERED: 1/2 NS 1000ml IV ONE ×2 (08:40→16:20)
[2017-06-06] MEDS ORDERED: NS Irrig 1000ml ONE (08:40)
[2017-06-06] MEDS: Bactrim Susp 20ml GT SCH ×2 (09:28→21:32)
[2017-06-06] MEDS: Aspirin EC 325mg tab ORAL SCH (09:28)
[2017-06-06] MEDS: KCl 10% 40mEq/30ml liquid NG SCH (09:29)
[2017-06-06] MEDS: Vancomycin 1250mg/D5W 250ml IVPB SCH (09:29)
[2017-06-06] MEDS: Heparin 5000 units/ml inj SUBQ SCH ×2 (09:31→21:39)
--- NOTE | 2017-06-06 11:58 | Cardiology Report ---
APPROVED REPORT EXAM: Two-dimensional and M-mode echocardiogram with Doppler and color Doppler. INDICATION Endocarditis M-Mode DIMENSIONS IVSd1.2 (0.7-1.1cm)Left Atrium (MM)2.4 (1.6-4.0cm) LVDd3.8 (3.5-5.6cm)Aortic Root3.0 (2.0-3.7cm) PWd1.0 (0.7-1.1cm)Aortic Cusp Exc.1.8 (1.5-2.0cm) LVDs2.6 (2.5-4.0cm) PWs1.1 cm area. Normal left ventricular chamber size, systolic function and wall motion to extent visualized. Left ventricular ejection fraction estimated to be 60 %. Study quality precludes accurate assessment of regional wall motion. Borderline left ventricular hypertrophy. No evidence of pericardial effusion. All other cardiac chamber sizes are within normal limits. Focal aortic valve sclerosis with adequate cusp excursion. Thickened mitral valve leaflets with normal excursion. Mitral annulus and aortic root calcification. Normal pulmonic valve structure. Normal tricuspid valve structure. Subcostal views unobtainable due to G-tube location. No discrete vegetations seen, however SBE may not be excluded by transthoracic 2-D echo. Consider MARIA ISABEL if clinically indicated. A color flow and spectral Doppler study was performed and revealed: No aortic regurgitation. Trace mitral regurgitation. Mitral diastolic velocities suggest reduced left ventricular relaxation c/w mild LV diastolic dysfunction (Grade I). Trace tricuspid regurgitation. Tricuspid systolic velocities suggests peak right ventricular systolic pressure of 22 mmHg.
[2017-06-06 11:59] VITALS: BP 119/61
[2017-06-06] MEDS: cefTRIAXone 2 GM in D5W 110 ML IVPB SCH (12:54)
[2017-06-06 16:06] VITALS: BP 123/67
[2017-06-06] MEDS: Morphine Sulfate 4mg/ml Inj IVP PRN ×2 (16:12→23:22)
--- NOTE | 2017-06-06 18:50 | General Progress Note ---
Assessment/Plan Problem List: (1) Sepsis ICD Codes: A41.9 - Sepsis, unspecified organism SNOMED: 20367310 Qualifiers: Qualified Codes: A41.9 - Sepsis, unspecified organism (2) Altered level of consciousness ICD Codes: R40.4 - Transient alteration of awareness SNOMED: 4500933 (3) Gram-neg septicemia ICD Codes: A41.50 - Gram-negative sepsis, unspecified SNOMED: 457312672 (4) Sacral decubitus ulcer, stage IV ICD Codes: L89.154 - Pressure ulcer of sacral region, stage 4 SNOMED: 809146932, 760491583 (5) Hypokalemia ICD Codes: E87.6 - Hypokalemia SNOMED: 53995972 (6) Anemia ICD Codes: D64.9 - Anemia, unspecified SNOMED: 066867594 Assessment/Plan abxs wound care follow labs DNR, DNI Subjective Allergies: Coded Allergies: No Known Allergies (Unverified , 05/30/17) Subjective All noted Objective Last 24 Hour Vital Signs Date Time Temp Pulse Resp B/P (MAP) Pulse Ox O2 Delivery O2 Flow Rate FiO2 06/06/17 16:42 97.8 06/06/17 16:06 97.8 96 18 123/67 98 Nasal Cannula 3.0 06/06/17 16:00 95 06/06/17 13:54 98.6 06/06/17 12:00 90 06/06/17 11:59 98.6 111 18 119/61 100 Nasal Cannula 3.0 06/06/17 08:32 99 06/06/17 08:00 97.7 100 18 119/66 98 Nasal Cannula 3.0 06/06/17 03:36 110 06/06/17 03:20 97.7 111 18 134/84 100 Nasal Cannula 3.0 06/06/17 00:00 98 06/05/17 23:40 97.8 100 18 130/60 100 Nasal Cannula 3.0 06/05/17 20:00 94 06/05/17 20:00 97.8 101 18 137/61 100 Nasal Cannula 3.0 Intake and Output 06/06/17 06/07/17 19:00 07:00 Intake Total 1675.000 ml Output Total 2250 ml Balance -575.000 ml Free Water 200 ml IV Total 760.000 ml Tube Feeding 715 ml Output Urine Total 2250 ml # Bowel Movements 4 Laboratory Tests 06/06/17 04:00: White Blood Count 5.9, Red Blood Count 2.97L, Hemoglobin 7.6L, Hematocrit 25.6L , Mean Corpuscular Volume 86, Mean Corpuscular Hemoglobin 25.7L, Mean Corpuscular Hemoglobin Concent 29.9L, Red Cell Distribution Width 17.4H, Platelet Count 744H, Mean Platelet Volume 5.3L, Neutrophils (%) (Auto) , Lymphocytes (%) (Auto) , Monocytes (%) (Auto) , Eosinophils (%) (Auto) , Basophils (%) (Auto) , Differential Total Cells Counted 100, Neutrophils % ( Manual) 69, Lymphocytes % (Manual) 22, Monocytes % (Manual) 8, Eosinophils % ( Manual) 1, Basophils % (Manual) 0, Band Neutrophils 0, Platelet Estimate IncreasedH, Platelet Morphology Normal, Hypochromasia 1+, Anisocytosis 1+ 06/06/17 07:55: White Blood Count 6.4, Red Blood Count 3.23L, Hemoglobin 8.4L, Hematocrit 27.8L , Mean Corpuscular Volume 86, Mean Corpuscular Hemoglobin 25.9L, Mean Corpuscular Hemoglobin Concent 30.1L, Red Cell Distribution Width 18.1H, Platelet Count 764H, Mean Platelet Volume 5.4L, Neutrophils (%) (Auto) 65.8, Lymphocytes (%) (Auto) 25.3, Monocytes (%) (Auto) 7.7, Eosinophils (%) (Auto) 0.4, Basophils (%) (Auto) 0.7 Height (Feet): 5 Height (Inches): 5.00 Weight (Pounds): 120 REBECARAJEEVCHARLES Jun 06, 2017 18:50
[2017-06-06 20:00] VITALS: BP 114/64
[2017-06-06] MEDS: Dyna-Hex 2% Top Sol 2oz TOPIC SCH (21:32)
[2017-06-07] VITALS: BP 125/72
[2017-06-07 04:00] VITALS: BP 115/77
[2017-06-07] MEDS: Morphine Sulfate 4mg/ml Inj IVP PRN ×3 (06:25→21:38)
[2017-06-07 08:00] VITALS: BP 143/75
[2017-06-07] MEDS: KCl 10% 40mEq/30ml liquid NG SCH (09:31)
[2017-06-07] MEDS: Aspirin EC 325mg tab ORAL SCH (09:32)
[2017-06-07] MEDS: Bactrim Susp 20ml GT SCH ×2 (09:32→21:34)
[2017-06-07] MEDS: Vancomycin 1250mg/D5W 250ml IVPB SCH (09:32)
[2017-06-07] MEDS: Heparin 5000 units/ml inj SUBQ SCH ×2 (09:34→21:37)
[2017-06-07 12:00] VITALS: BP 104/57
[2017-06-07] MEDS: cefTRIAXone 2 GM in D5W 110 ML IVPB SCH (12:24)
--- NOTE | 2017-06-07 12:36 | Infectious Diseases Prog Note ---
Assessment/Plan Assessment/Plan A: E. coli & MRSA sepsis sepsis Infected pressure ulcer & osteomyelitis of sacrum & hip s/p wound debridement Left humerus fracture Anemia VRE colonization P; Continue Rocephin, IV Vancomycin & PO Bactrim X 34 days Wound care Subjective ROS Limited/Unobtainable: Yes Allergies: Coded Allergies: No Known Allergies (Unverified , 05/30/17) Objective Vital Signs Last 24 Hour Vital Signs Date Time Temp Pulse Resp B/P (MAP) Pulse Ox O2 Delivery O2 Flow Rate FiO2 06/07/17 12:00 97.6 93 14 104/57 96 Nasal Cannula 3.0 06/07/17 08:00 120 06/07/17 08:00 97.5 99 14 143/75 96 Nasal Cannula 3.0 06/07/17 04:00 102 06/07/17 04:00 96.1 102 20 115/77 98 Nasal Cannula 3.0 06/07/17 00:00 99.5 102 20 125/72 99 Nasal Cannula 3.0 06/06/17 23:36 101 06/06/17 20:31 96 06/06/17 20:00 96.6 113 20 114/64 99 Nasal Cannula 3.0 06/06/17 16:42 97.8 06/06/17 16:06 97.8 96 18 123/67 98 Nasal Cannula 3.0 06/06/17 16:00 95 06/06/17 13:54 98.6 Height (Feet): 5 Height (Inches): 5.00 Weight (Pounds): 120 General Appearance: cachetic HEENT: mucous membranes moist Respiratory/Chest: lungs clear Cardiovascular: normal rate Abdomen: soft, non tender, other - GT feeding Extremities: no edema, other - R arm PICC line Neurologic/Psychiatric: aphasia, other - awake Microbiology Date/Time Source Procedure Growth Status 06/04/17 13:00 Stool Clostridium difficile Toxin Assay - Final Complete Current Medications Medications (Trade) Dose Ordered Sig/Danielle Route PRN Reason Start Time Stop Time Status Last Admin Dose Admin Acetaminophen (Tylenol) 650 mg Q4H PRN ORAL Mild Pain (Pain Scale 1-3) 05/30/17 14:30 06/29/17 14:29 06/06/17 12:55 Aspirin (Ecotrin) 325 mg DAILY ORAL 05/30/17 16:15 06/29/17 16:14 06/07/17 09:32 Ceftriaxone Sodium 2 gm/ Dextrose 110 ml @ 220 mls/hr Q24H IVPB 06/03/17 12:00 06/10/17 11:59 06/07/17 12:24 Chlorhexidine Gluconate (Audrey-Hex 2%) 1 applic BEDTIME TOPIC 06/06/17 21:00 07/04/17 08:59 06/06/17 21:32 Clonazepam (KlonoPIN) 0.5 mg Q6H PRN GT For Anxiety/shaking 06/01/17 00:45 06/08/17 00:44 06/04/17 06:21 Dextrose (Dextrose 50%) STAT PRN IV Hypoglycemia 05/30/17 14:30 06/29/17 14:29 Diphenoxylate HCl/ Atropine (Lomotil) 2.5 mg Q6H PRN GT Diarrhea 06/05/17 20:00 07/05/17 19:59 06/06/17 04:06 Escitalopram Oxalate (Lexapro) 10 mg DAILY GT 06/01/17 09:00 07/01/17 08:59 06/07/17 09:32 Heparin Sodium (Porcine) (Heparin 5000 units/ml) 5,000 units EVERY 12 HOURS SUBQ 05/30/17 16:00 06/29/17 15:59 06/07/17 09:34 Levothyroxine Sodium (Synthroid) 88 mcg DAILY@0630 GT 06/01/17 06:30 07/01/17 06:29 06/07/17 06:21 Magnesium Hydroxide (Mom) 30 ml HSPRN PRN ORAL Constipation 05/30/17 14:30 06/29/17 14:29 Morphine Sulfate (Morphine Sulfate) 4 mg Q3H PRN IVP Severe Pain (Pain Scale 7-10) 06/06/17 16:00 06/13/17 15:59 06/07/17 06:25 Potassium Chloride (KCl 10% 40mEq Oral solution) 40 meq DAILY NG 06/03/17 16:30 07/03/17 16:29 06/07/17 09:31 Ranitidine HCl (Zantac) 150 mg TWICE A DAY ORAL 05/30/17 18:00 06/29/17 17:59 06/07/17 09:32 Sodium Chloride 1,000 ml @ 50 mls/hr Q20H IV 05/30/17 16:00 06/29/17 15:59 06/07/17 04:23 Trimethoprim/ Sulfamethoxazole (Bactrim-DS) 20 ml EVERY 12 HOURS GT 06/02/17 21:00 06/09/17 20:59 06/07/17 09:32 Vancomycin HCl (Vanco rx to dose) 1 ea DAILY PRN MISC Per rx protocol 05/30/17 14:30 06/29/17 14:29 Vancomycin HCl/ Dextrose 250 ml @ 166.667 mls/hr Q24H IVPB 06/02/17 09:00 06/08/17 08:59 06/07/17 09:32 CALEB JOSE Jun 07, 2017 12:36
--- NOTE | 2017-06-07 14:37 | General Progress Note ---
Assessment/Plan Problem List: (1) Sepsis ICD Codes: A41.9 - Sepsis, unspecified organism SNOMED: 97672945 Qualifiers: Qualified Codes: A41.9 - Sepsis, unspecified organism (2) Altered level of consciousness ICD Codes: R40.4 - Transient alteration of awareness SNOMED: 6361193 (3) Gram-neg septicemia ICD Codes: A41.50 - Gram-negative sepsis, unspecified SNOMED: 663089223 (4) Sacral decubitus ulcer, stage IV ICD Codes: L89.154 - Pressure ulcer of sacral region, stage 4 SNOMED: 159815819, 787725253 (5) Hypokalemia ICD Codes: E87.6 - Hypokalemia SNOMED: 01994534 (6) Anemia ICD Codes: D64.9 - Anemia, unspecified SNOMED: 788000190 Assessment/Plan abxs wound care follow labs DNR, DNI Subjective Allergies: Coded Allergies: No Known Allergies (Unverified , 05/30/17) Subjective In NAD Objective Last 24 Hour Vital Signs Date Time Temp Pulse Resp B/P (MAP) Pulse Ox O2 Delivery O2 Flow Rate FiO2 06/07/17 12:31 98 06/07/17 12:00 97.6 93 14 104/57 96 Nasal Cannula 3.0 06/07/17 08:00 120 06/07/17 08:00 97.5 99 14 143/75 96 Nasal Cannula 3.0 06/07/17 04:00 102 06/07/17 04:00 96.1 102 20 115/77 98 Nasal Cannula 3.0 06/07/17 00:00 99.5 102 20 125/72 99 Nasal Cannula 3.0 06/06/17 23:36 101 06/06/17 20:31 96 06/06/17 20:00 96.6 113 20 114/64 99 Nasal Cannula 3.0 06/06/17 16:42 97.8 06/06/17 16:06 97.8 96 18 123/67 98 Nasal Cannula 3.0 06/06/17 16:00 95 Intake and Output 06/07/17 06/08/17 19:00 07:00 Intake Total 1165.000 ml Balance 1165.000 ml Free Water 100 ml IV Total 610.000 ml Tube Feeding 455 ml # Bowel Movements 2 Height (Feet): 5 Height (Inches): 5.00 Weight (Pounds): 120 Cardiovascular: normal rate Respiratory/Chest: lungs clear Edema: no edema noted Generalized CHARLES JOSE Jun 07, 2017 14:37
[2017-06-07] MEDS ORDERED: 1/2 NS 1000ml IV ONE (15:45)
[2017-06-07 16:01] VITALS: BP 136/84
[2017-06-07 20:00] VITALS: BP 120/76
[2017-06-07] MEDS ORDERED: Miralax 17gm pkt ORAL SCH (21:00)
[2017-06-07] MEDS: Dyna-Hex 2% Top Sol 2oz TOPIC SCH (21:34)
[2017-06-07] MEDS: Lomotil 2.5mg tab GT PRN (22:24)
[2017-06-08] VITALS: BP 120/65
[2017-06-08] MEDS: Morphine Sulfate 4mg/ml Inj IVP PRN ×3 (03:55→21:56)
[2017-06-08 04:00] VITALS: BP 106/67
[2017-06-08 05:15] LABS: MEAN CORPUSCULAR HEMOGLOBIN 26.2 PG (27.0-31.0); MEAN CORPUSCULAR HGB CONC 30.3 G/DL (32.0-36.0); MEAN CORPUSCULAR VOLUME 86 FL (80-99); MEAN PLATELET VOLUME 5.7 FL (6.5-10.1); PLATELET COUNT 725 K/UL (150-450); RED CELL DISTRIBUTION WIDTH 17.8 % (11.6-14.8); WHITE BLOOD COUNT 7.1 K/UL (4.8-10.8)
[2017-06-08 05:39] LABS: CALCIUM 9.5 mg/dL (8.6-10.2); CARBON DIOXIDE 27 mEQ/L (20-30); CHLORIDE 94 mEQ/L (98-107); CREATININE 0.5 mg/dL (0.5-0.9); GLOMERULAR FILTRATION RATE > 60 mL/min (>60); HEMOLYSIS 0; SODIUM 133 mEQ/L (135-145)
[2017-06-08 05:46] LABS: ANION GAP 12 (5-15)
[2017-06-08 05:56] LABS: POTASSIUM 6.1 mEQ/L (3.4-4.9)
[2017-06-08 08:12] VITALS: BP 121/67
[2017-06-08] MEDS: Bactrim Susp 20ml GT SCH ×2 (08:55→21:54)
[2017-06-08] MEDS: Aspirin EC 325mg tab ORAL SCH (08:55)
[2017-06-08] MEDS: Vancomycin 1250mg/D5W 250ml IVPB SCH (08:55)
[2017-06-08] MEDS: Heparin 5000 units/ml inj SUBQ SCH ×2 (08:57→21:55)
[2017-06-08 09:21] LABS: BASOPHILS % (AUTO) 1.1 % (0.0-2.0); EOSINOPHILS % (AUTO) 0.4 % (0.0-3.0); LYMPHOCYTES % (AUTO) 21.6 % (20.0-45.0); MEAN CORPUSCULAR HEMOGLOBIN 26.9 PG (27.0-31.0); MEAN CORPUSCULAR HGB CONC 30.8 G/DL (32.0-36.0); MEAN CORPUSCULAR VOLUME 87 FL (80-99); MEAN PLATELET VOLUME 5.8 FL (6.5-10.1); PLATELET COUNT 686 K/UL (150-450); RED BLOOD COUNT 3.11 M/UL (4.20-5.40); RED CELL DISTRIBUTION WIDTH 17.8 % (11.6-14.8); WHITE BLOOD COUNT 6.8 K/UL (4.8-10.8)
--- NOTE | 2017-06-08 10:12 | Infectious Diseases Prog Note ---
"Assessment/Plan Assessment/Plan antibiotics : vancomycin iv, ceftriaxone, bactrim A 1. MRSA | e. coli sepsis 2. 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 left humerus fracture 4. rectal VRE colonization P 1. continue ceftriaxone, bactrim 2. d/c iv vancomycin 3. start Linezolid 4. will follow up cultures Subjective ROS Limited/Unobtainable: Yes Allergies: Coded Allergies: No Known Allergies (Unverified , 05/30/17) Objective Vital Signs Last 24 Hour Vital Signs Date Time Temp Pulse Resp B/P (MAP) Pulse Ox O2 Delivery O2 Flow Rate FiO2 06/08/17 08:51 114 06/08/17 08:12 99.1 118 22 121/67 95 Nasal Cannula 3.0 06/08/17 04:00 97.9 114 20 106/67 100 Nasal Cannula 3.0 06/08/17 03:59 105 06/08/17 00:00 97.3 110 20 120/65 100 Nasal Cannula 3.0 06/08/17 00:00 110 06/07/17 20:00 97.9 115 20 120/76 100 Nasal Cannula 3.0 06/07/17 19:43 102 06/07/17 16:51 97.2 06/07/17 16:01 97.2 103 16 136/84 99 Nasal Cannula 3.0 06/07/17 16:00 120 06/07/17 12:31 98 06/07/17 12:00 97.6 93 14 104/57 96 Nasal Cannula 3.0 Height (Feet): 5 Height (Inches): 5.00 Weight (Pounds): 120 Respiratory/Chest: lungs clear Cardiovascular: normal rate, regular rhythm, no gallop/murmur, other - GT Extremities: no edema Laboratory Tests Test 06/08/17 04:00 06/08/17 08:30 White Blood Count 7.1 K/UL (4.8-10.8) 6.8 K/UL (4.8-10.8) Red Blood Count 2.90 M/UL (4.20-5.40) L 3.11 M/UL (4.20-5.40) L Hemoglobin 7.6 G/DL (12.0-16.0) L 8.3 G/DL (12.0-16.0) L Hematocrit 25.0 % (37.0-47.0) L 27.1 % (37.0-47.0) L Mean Corpuscular Volume 86 FL (80-99) 87 FL (80-99) Mean Corpuscular Hemoglobin 26.2 PG (27.0-31.0) L 26.9 PG (27.0-31.0) L Mean Corpuscular Hemoglobin Concent 30.3 G/DL (32.0-36.0) L 30.8 G/DL (32.0-36.0) L Red Cell Distribution Width 17.8 % (11.6-14.8) H 17.8 % (11.6-14.8) H Platelet Count 725 K/UL (150-450) H 686 K/UL (150-450) H Mean Platelet Volume 5.7 FL (6.5-10.1) L 5.8 FL (6.5-10.1) L Neutrophils (%) (Auto) % (45.0-75.0) 68.0 % (45.0-75.0) Lymphocytes (%) (Auto) % (20.0-45.0) 21.6 % (20.0-45.0) Monocytes (%) (Auto) % (1.0-10.0) 9.0 % (1.0-10.0) Eosinophils (%) (Auto) % (0.0-3.0) 0.4 % (0.0-3.0) Basophils (%) (Auto) % (0.0-2.0) 1.1 % (0.0-2.0) Sodium Level 133 mEQ/L (135-145) L Potassium Level 6.1 mEQ/L (3.4-4.9) *H Chloride Level 94 mEQ/L (98-107) L Carbon Dioxide Level 27 mEQ/L (20-30) Anion Gap 12 (5-15) Blood Urea Nitrogen 11 mg/dL (7-23) Creatinine 0.5 mg/dL (0.5-0.9) Estimat Glomerular Filtration Rate > 60 mL/min (>60) Glucose Level 93 mg/dL (74-106) Calcium Level 9.5 mg/dL (8.6-10.2) JASON,SHAKUNTALA Jun 08, 2017 10:12"
[2017-06-08 12:00] VITALS: BP 118/69
[2017-06-08] MEDS: cefTRIAXone 2 GM in D5W 110 ML IVPB SCH (12:00)
--- NOTE | 2017-06-08 13:52 | General Progress Note ---
Assessment/Plan Problem List: (1) Sepsis ICD Codes: A41.9 - Sepsis, unspecified organism SNOMED: 18378167 Qualifiers: Qualified Codes: A41.9 - Sepsis, unspecified organism (2) Altered level of consciousness ICD Codes: R40.4 - Transient alteration of awareness SNOMED: 4278545 (3) Gram-neg septicemia ICD Codes: A41.50 - Gram-negative sepsis, unspecified SNOMED: 898927517 (4) Sacral decubitus ulcer, stage IV ICD Codes: L89.154 - Pressure ulcer of sacral region, stage 4 SNOMED: 840870693, 860987810 (5) Hypokalemia ICD Codes: E87.6 - Hypokalemia SNOMED: 12327218 (6) Anemia ICD Codes: D64.9 - Anemia, unspecified SNOMED: 171691007 Assessment/Plan abxs wound care follow labs Dc KCL Discussed with RN Subjective Allergies: Coded Allergies: No Known Allergies (Unverified , 05/30/17) Subjective In NAD Objective Last 24 Hour Vital Signs Date Time Temp Pulse Resp B/P (MAP) Pulse Ox O2 Delivery O2 Flow Rate FiO2 06/08/17 12:00 102 06/08/17 12:00 98.9 110 14 118/69 100 Nasal Cannula 3.0 06/08/17 08:51 114 06/08/17 08:12 99.1 118 22 121/67 95 Nasal Cannula 3.0 06/08/17 04:00 97.9 114 20 106/67 100 Nasal Cannula 3.0 06/08/17 03:59 105 06/08/17 00:00 97.3 110 20 120/65 100 Nasal Cannula 3.0 06/08/17 00:00 110 06/07/17 20:00 97.9 115 20 120/76 100 Nasal Cannula 3.0 06/07/17 19:43 102 06/07/17 16:51 97.2 06/07/17 16:01 97.2 103 16 136/84 99 Nasal Cannula 3.0 06/07/17 16:00 120 Laboratory Tests 06/08/17 04:00: White Blood Count 7.1, Red Blood Count 2.90L, Hemoglobin 7.6L, Hematocrit 25.0L , Mean Corpuscular Volume 86, Mean Corpuscular Hemoglobin 26.2L, Mean Corpuscular Hemoglobin Concent 30.3L, Red Cell Distribution Width 17.8H, Platelet Count 725H, Mean Platelet Volume 5.7L, Neutrophils (%) (Auto) , Lymphocytes (%) (Auto) , Monocytes (%) (Auto) , Eosinophils (%) (Auto) , Basophils (%) (Auto) , Sodium Level 133L, Potassium Level 6.1*H, Chloride Level 94L, Carbon Dioxide Level 27, Anion Gap 12, Blood Urea Nitrogen 11, Creatinine 0.5, Estimat Glomerular Filtration Rate > 60, Glucose Level 93, Calcium Level 9.5 06/08/17 08:30: White Blood Count 6.8, Red Blood Count 3.11L, Hemoglobin 8.3L, Hematocrit 27.1L , Mean Corpuscular Volume 87, Mean Corpuscular Hemoglobin 26.9L, Mean Corpuscular Hemoglobin Concent 30.8L, Red Cell Distribution Width 17.8H, Platelet Count 686H, Mean Platelet Volume 5.8L, Neutrophils (%) (Auto) 68.0, Lymphocytes (%) (Auto) 21.6, Monocytes (%) (Auto) 9.0, Eosinophils (%) (Auto) 0.4, Basophils (%) (Auto) 1.1 Height (Feet): 5 Height (Inches): 5.00 Weight (Pounds): 120 Cardiovascular: normal rate Respiratory/Chest: lungs clear Edema: no edema noted CHARLES Sims Jun 08, 2017 13:52
[2017-06-08 16:00] VITALS: BP 120/74
[2017-06-08 20:00] VITALS: BP 122/68
[2017-06-08] MEDS: Dyna-Hex 2% Top Sol 2oz TOPIC SCH (21:54)
[2017-06-09] VITALS: BP 108/71
[2017-06-09 04:21] VITALS: BP 124/77
[2017-06-09] MEDS: Morphine Sulfate 4mg/ml Inj IVP PRN ×2 (04:26→19:55)
[2017-06-09 05:11] LABS: MEAN CORPUSCULAR HEMOGLOBIN 27.8 PG (27.0-31.0); MEAN CORPUSCULAR HGB CONC 32.2 G/DL (32.0-36.0); MEAN CORPUSCULAR VOLUME 86 FL (80-99); MEAN PLATELET VOLUME 5.9 FL (6.5-10.1); PLATELET COUNT 665 K/UL (150-450); RED BLOOD COUNT 2.64 M/UL (4.20-5.40); RED CELL DISTRIBUTION WIDTH 17.7 % (11.6-14.8); WHITE BLOOD COUNT 5.4 K/UL (4.8-10.8)
[2017-06-09 05:33] LABS: ANION GAP 12 (5-15); CALCIUM 9.7 mg/dL (8.6-10.2); CARBON DIOXIDE 28 mEQ/L (20-30); CHLORIDE 92 mEQ/L (98-107); CREATININE 0.5 mg/dL (0.5-0.9); GLOMERULAR FILTRATION RATE > 60 mL/min (>60); HEMOLYSIS 17; POTASSIUM 5.4 mEQ/L (3.4-4.9); SODIUM 132 mEQ/L (135-145)
[2017-06-09 08:10] VITALS: BP 124/77
[2017-06-09] MEDS: Heparin 5000 units/ml inj SUBQ SCH ×2 (09:40→22:31)
[2017-06-09] MEDS: Metoprolol 25mg tab ORAL SCH ×2 (09:41→22:25)
[2017-06-09] MEDS: Bactrim Susp 20ml GT SCH ×2 (09:42→22:36)
--- NOTE | 2017-06-09 10:30 | Infectious Diseases Prog Note ---
Assessment/Plan Assessment/Plan A: E. coli & MRSA sepsis sepsis Infected pressure ulcer & osteomyelitis of sacrum & hip s/p wound debridement Left humerus fracture Anemia VRE colonization P; Continue Rocephin, Linezolid & PO Bactrim X 32 days Wound care Subjective ROS Limited/Unobtainable: Yes Allergies: Coded Allergies: No Known Allergies (Unverified , 05/30/17) Objective Vital Signs Last 24 Hour Vital Signs Date Time Temp Pulse Resp B/P (MAP) Pulse Ox O2 Delivery O2 Flow Rate FiO2 06/09/17 09:41 100 124/77 06/09/17 08:10 97.5 100 20 124/77 96 Nasal Cannula 3.0 06/09/17 07:31 104 06/09/17 04:56 98.0 06/09/17 04:30 94 06/09/17 04:21 98.0 105 18 124/77 100 Nasal Cannula 3.0 06/09/17 00:00 98.4 107 20 108/71 100 Nasal Cannula 3.0 06/08/17 20:02 106 06/08/17 20:00 98.0 106 20 122/68 100 Nasal Cannula 3.0 06/08/17 18:53 88 18 Nasal Cannula 3.0 32 06/08/17 16:00 101 06/08/17 16:00 98.6 107 20 120/74 100 Nasal Cannula 3.0 06/08/17 12:00 102 06/08/17 12:00 98.9 110 14 118/69 100 Nasal Cannula 3.0 Height (Feet): 5 Height (Inches): 5.00 Weight (Pounds): 120 General Appearance: cachetic HEENT: mucous membranes moist Respiratory/Chest: lungs clear Cardiovascular: normal rate Abdomen: soft, non tender, other - GT feeding Extremities: no edema, other - R arm PICC line Skin: ulcers Neurologic/Psychiatric: alert, responsive Laboratory Tests Test 06/09/17 03:45 White Blood Count 5.4 K/UL (4.8-10.8) Red Blood Count 2.64 M/UL (4.20-5.40) L Hemoglobin 7.3 G/DL (12.0-16.0) L Hematocrit 22.8 % (37.0-47.0) L Mean Corpuscular Volume 86 FL (80-99) Mean Corpuscular Hemoglobin 27.8 PG (27.0-31.0) Mean Corpuscular Hemoglobin Concent 32.2 G/DL (32.0-36.0) Red Cell Distribution Width 17.7 % (11.6-14.8) H Platelet Count 665 K/UL (150-450) H Mean Platelet Volume 5.9 FL (6.5-10.1) L Neutrophils (%) (Auto) % (45.0-75.0) Lymphocytes (%) (Auto) % (20.0-45.0) Monocytes (%) (Auto) % (1.0-10.0) Eosinophils (%) (Auto) % (0.0-3.0) Basophils (%) (Auto) % (0.0-2.0) Sodium Level 132 mEQ/L (135-145) L Potassium Level 5.4 mEQ/L (3.4-4.9) H Chloride Level 92 mEQ/L (98-107) L Carbon Dioxide Level 28 mEQ/L (20-30) Anion Gap 12 (5-15) Blood Urea Nitrogen 10 mg/dL (7-23) Creatinine 0.5 mg/dL (0.5-0.9) Estimat Glomerular Filtration Rate > 60 mL/min (>60) Glucose Level 87 mg/dL (74-106) Calcium Level 9.7 mg/dL (8.6-10.2) Current Medications Medications (Trade) Dose Ordered Sig/Danielle Route PRN Reason Start Time Stop Time Status Last Admin Dose Admin Acetaminophen (Tylenol) 650 mg Q4H PRN ORAL Mild Pain (Pain Scale 1-3) 05/30/17 14:30 06/29/17 14:29 06/06/17 12:55 Aspirin (ASA) 325 mg DAILY GT 06/09/17 09:00 07/09/17 08:59 06/09/17 09:40 Ceftriaxone Sodium 2 gm/ Dextrose 110 ml @ 220 mls/hr Q24H IVPB 06/03/17 12:00 06/10/17 23:59 06/08/17 12:00 Chlorhexidine Gluconate (Audrey-Hex 2%) 1 applic BEDTIME TOPIC 06/06/17 21:00 07/04/17 08:59 06/08/17 21:54 Dextrose (Dextrose 50%) STAT PRN IV Hypoglycemia 05/30/17 14:30 06/29/17 14:29 Diphenoxylate HCl/ Atropine (Lomotil) 2.5 mg Q6H PRN GT Diarrhea 06/05/17 20:00 07/05/17 19:59 06/07/17 22:24 Escitalopram Oxalate (Lexapro) 10 mg DAILY GT 06/01/17 09:00 07/01/17 08:59 06/09/17 09:41 Heparin Sodium (Porcine) (Heparin 5000 units/ml) 5,000 units EVERY 12 HOURS SUBQ 05/30/17 16:00 06/29/17 15:59 06/09/17 09:40 Levothyroxine Sodium (Synthroid) 88 mcg DAILY@0630 GT 06/01/17 06:30 07/01/17 06:29 06/09/17 06:30 Linezolid (Zyvox) 600 mg EVERY 12 HOURS ORAL 06/08/17 11:00 06/13/17 10:59 06/09/17 09:41 Magnesium Hydroxide (Mom) 30 ml HSPRN PRN ORAL Constipation 05/30/17 14:30 06/29/17 14:29 Metoprolol Tartrate (Lopressor) 25 mg Q12HR ORAL 06/09/17 09:30 07/09/17 09:29 06/09/17 09:41 Morphine Sulfate (Morphine Sulfate) 4 mg Q3H PRN IVP Severe Pain (Pain Scale 7-10) 06/06/17 16:00 06/13/17 15:59 06/09/17 04:26 Ranitidine HCl (Zantac) 150 mg TWICE A DAY ORAL 05/30/17 18:00 06/29/17 17:59 06/09/17 09:41 Sodium Chloride 1,000 ml @ 50 mls/hr Q20H IV 05/30/17 16:00 06/29/17 15:59 06/08/17 19:01 Trimethoprim/ Sulfamethoxazole (Bactrim-DS) 20 ml EVERY 12 HOURS GT 06/02/17 21:00 06/14/17 20:59 06/09/17 09:42 CALEB JOSE Jun 09, 2017 10:30
[2017-06-09] MEDS: cefTRIAXone 2 GM in D5W 110 ML IVPB SCH (11:22)
[2017-06-09 12:00] VITALS: BP 101/56
[2017-06-09] MEDS ORDERED: SULFAMETHOXAZO473 ML GT (12:49)
[2017-06-09] MEDS ORDERED: CEFTRIAXON2 GM/50 ML IV (12:49)
[2017-06-09] MEDS ORDERED: ASPIRIN325 MG GT (12:49)
--- NOTE | 2017-06-09 13:01 | Consultation ---
Consult Note Assessment/Plan Dc dictated # [id number] CHARLES JOSE Jun 09, 2017 13:01
[2017-06-09 16:00] VITALS: BP 104/52
[2017-06-09 20:19] VITALS: BP 149/71
[2017-06-09] MEDS: Dyna-Hex 2% Top Sol 2oz TOPIC SCH (22:25)
[2017-06-10 00:25] VITALS: BP 107/65
[2017-06-10] MEDS: Lomotil 2.5mg tab GT PRN (00:38)
[2017-06-10 04:00] VITALS: BP 117/71
--- NOTE | 2017-06-10 05:45 | Discharge Summary ---
DATE OF ADMISSION: 05/30/2017 DATE OF DISCHARGE: 06/10/2017 CHIEF COMPLAINT: The patient was brought in from group home for change in mental status. 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 She was admitted with change in mental status with high white count of 16,600 and diagnosis of sepsis. HOSPITAL COURSE: The patient was found to have a large stage IV sacral decubitus ulcer and it was felt that that could be the source of her infection and the patient was started on multiple antibiotics and she was seen by Dr. Elroy Aguirre in ID consultation. The patient cultures came back positive. Blood culture was positive for E. coli. The wound culture was showing Acinetobacter, E. coli, and Proteus, as well as Staph aureus, Providencia stuartii, and Enterococcus faecalis, VRE. She was on multiple antibiotics. She also had anemia, which got worse and she finally required transfusion of one unit of packed red blood cells. The patient was seen also by Dr. Townsend, who recommended bedside debridement of the right ischium and also bone biopsy. The patient had a new PICC line placed ordered by Dr. Elroy Aguirre. Her condition generally improved. Her change in mental status, improved. She was also on sedatives, which were discontinued. She became more verbal. The patient had also hypokalemia, her potassium was repleted. She was DNR and DNI per sister. The patient was eventually discharged to shelter facility. DISCHARGE DIAGNOSES: 1. Sacral stage IV decubitus with wound infection as described. 2. Escherichia coli bacteremia and sepsis. 3. Anemia requiring transfusion. 4. Change in mental status as a result of the above and also medications. Kody Aguirre M.D. DR: ANETTE JOB#: [id number] CC: MELISSA
[2017-06-10 08:00] VITALS: BP 110/59
[2017-06-10 08:16] VITALS: BP 110/59
[2017-06-10] MEDS: Bactrim Susp 20ml GT SCH (08:16)
[2017-06-10] MEDS: Metoprolol 25mg tab ORAL SCH (08:16)
[2017-06-10] MEDS: Heparin 5000 units/ml inj SUBQ SCH (08:19)
[2017-06-10] MEDS ORDERED: Tubing Blood Filter IV ONE (10:42)
[2017-06-10] MEDS ORDERED: Tubing IV Secondary IV ONE (10:42)
[2017-06-10] MEDS ORDERED: 1/2 NS 1000ml IV ONE (10:42)
--- NOTE | 2017-07-07 08:30 | Operative Note - Dictated ---
DATE OF OPERATION: 06/02/2017 SURGEON: Claus Townsend M.D. Preoperative Diagnoses: Stage IV necrotic right ischial and trochanter ulcer, stage IV sacral ulcer, osteomyelitis of the sacrum. Postoperative Diagnoses: Stage IV necrotic right ischial and trochanter ulcer, stage IV sacral ulcer, osteomyelitis of the sacrum. Operation: Deep open bone biopsy of sacrum, sharp excisional debridement of sacrum, right ischial, right trochanter ulcers down to muscle. ANESTHESIA: Topical anesthetic. Operative Indications: This is a patient, who was admitted to the hospital on 05/30/2017 for change in mental status. 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 Upon admission, she was noted to have a white blood cell count of 16.6 and was also noted to have a necrotic tissue in her sacral, right ischial and right trochanter ulcers. Decision was made to perform an excisional debridement, but also to rule out osteomyelitis of the sacrum with a deep open bone biopsy of the sacrum. Once consent was obtained from the medical decision maker, the procedure was done. Due to the nature of the procedure and the patient's comorbidities, it was felt to be feasible to do safely at the bedside. Operative Procedure: The patient was seen at the bedside and once identified by name, the areas were cleansed and draped with and then towels. Using sterile gloves and combination of a #15 blade forceps as well as scissors, sharp excisional debridement down to muscle was performed to the sacrum, right trochanter, and right ischial pressure ulcers to remove necrotic tissue as well as slough. The sacral bone was visible and palpable at the base of the wound and so a medium-size rongeur was used to take several pieces of sample for both pathology as well as microbiology. Pressure was then used for hemostasis and at this point, the debridement was completed and dressings were applied. The patient did not have any discomfort during the procedure and dressing orders were then referred to the nurse. The patient tolerated the procedure well. SPECIMENS: Included bone for microbiology as well as pathology. Claus Townsend M.D. DR: TIANA JOB#: [id number] CC:
== END 2017-06-10 10:43 | DRG 853 ==
LOC: EDBD 11:09 → EMR 11:41 → EDBEDREQ 12:42 → 2E 15:51 → 2W 19:03
PROC: 0JBL0ZZ Excision of Right Upper Leg Subcutaneous Tissue and Fascia, Open Approach (ICD-10-PCS; principal; 2017-06-02)
PROC: 0JB70ZZ Excision of Back Subcutaneous Tissue and Fascia, Open Approach (ICD-10-PCS; principal; 2017-06-02)
PROC: 0QBS0ZX Excision of Coccyx, Open Approach, Diagnostic (ICD-10-PCS; principal; 2017-06-02)
PROC: 02HV33Z Insertion of Infusion Device into Superior Vena Cava, Percutaneous Approach (ICD-10-PCS; 2017-06-03)
PROC: B518ZZA Fluoroscopy of Superior Vena Cava, Guidance (ICD-10-PCS; 2017-06-03)
DX: A41.51 Sepsis due to Escherichia coli [E. coli] (principal); L89.154 Pressure ulcer of sacral region, stage 4; L89.214 Pressure ulcer of right hip, stage 4; M86.8X8 Other osteomyelitis, other site; D64.9 Anemia, unspecified; I10 Essential (primary) hypertension; S42.302A Unspecified fracture of shaft of humerus, left arm, initial encounter for closed fracture; E87.6 Hypokalemia; F32.9 Major depressive disorder, single episode, unspecified; E03.9 Hypothyroidism, unspecified; Z93.1 Gastrostomy status; E11.9 Type 2 diabetes mellitus without complications; G96.9 Disorder of central nervous system, unspecified; Z66 Do not resuscitate; X58.XXXA Exposure to other specified factors, initial encounter; Y92.9 Unspecified place or not applicable
CPT/HCPCS: 36415; 36569; 71010; 76937; 80048; 80053; 80202; 81003; 82550; 82553; 82962; 83540; 83550; 83605; 83735; 84134; 84484; 85007; 85025; 85610; 85730; 86850; 86900; 86901; 86920; 87040; 87070; 87081; 87086; 87181; 87205; 87324; 93005; 93306; 94664; 99285